=== PATIENT | male | born 1950 | race Caucasian/White ===

== ENCOUNTER 2019-08-11 06:58 | Observation (INO) | payer MEDICARE ==
[~2019-08-11] VITALS: Ht 167.6 cm; Wt 76.4 kg
[~2019-08-11 06:58] MED LIST: ACET500; ATOR10; DICL75ER PO; DICMIS75EC PO; EZET10-40 PO; GLUCOSAMIN-CHO1 EACH PO; INSULANPEN SC; LIRA0.6P; LISI20 PO; METF500 PO; METO10 PO; Multiple Vitam1 EAC1 PO; NAPR500; OMEP20ER; OMEP20ER PO; OXYACE5T PO; PIOG45 PO; Pravachol80 MG PO; TRAZ150T57 PO; TRAZ50; Vitamin B Comple1 EA PO; Vitamin C100 M1; ZESTORETIC 20-121 EA PO
[2019-08-11 10:37] LABS: Hematocrit 31.4 % (37.0-53.0); Hemoglobin 10.4 g/dL (13.5-17.5)
--- NOTE | 2019-08-11 10:45 | NUR ---
9226 Patient returned to recovery room. Pale skin noted. Dopamine infusing at 5 mcg/min from the clinical lab scientist. H&H drawn in the lab and results noted and reported to Dr. Hickman. Bilateral groin sites noted with dressing CDI and soft no hematoma. Call light in reach. to the bedside. Denies any pain at this time. Patient remains prone.
--- NOTE | 2019-08-11 10:52 | NUR ---
1052 Rhythm change noted. Drop to 30's, and then return rhythm was changed from pre procedure strip. MD at the bedside and ordered 12 lead EKG performed. Patient denies gagandeep pain, patient is sleepy from post sedation.
--- NOTE | 2019-08-11 10:58 | NUR ---
1058 Glucose checked at the bedside. 160 result.
--- NOTE | 2019-08-11 11:01 | NUR ---
1102 Stat labs drawn after EKG reviewed and compared to the prior EKG. Encouraging the patient to urinate.
--- NOTE | 2019-08-11 11:09 | NUR ---
1109 Lanier catheter placed. Aparna C/O nausea, Obtained order for Zofran and 4 mg IV Zofran given. Lab at the bedside for blood ordered.
[2019-08-11 12:22] LABS: Alanine Aminotransfer (ALT/SGP 20 U/L (12-78); Albumin, Blood 2.9 g/dL (3.4-5.0); Albumin/Globulin Ratio 1.4 (0.8-1.8); Alk Phos 41 U/L (50-136); Anion Gap 5 mmol/L (6-16); Aspartate Aminotrans (AST/SGOT 16 U/L (12-37); Bilirubin, Total 0.4 mg/dL (0.1-1.0); Blood Urea Nitrogen 20 mg/dL (8-24); Bun/Creatinine Ratio 20.8 (12.0-20.0); CO2, Blood 23 mmol/L (21-32); Calcium, Blood 7.5 mg/dL (8.5-10.1); Chloride, Blood 114 mmol/L (98-108); Creatinine, Blood 0.96 mg/dL (0.60-1.20); Globulin, Blood 2.1 g/dL (2.2-4.0); Glomerular Filtration Rate >60 (60-); Glucose, Blood 168 mg/dL (70-99); Potassium, Blood 4.4 mmol/L (3.5-5.5); Sodium, Blood 142 mmol/L (136-145)
--- NOTE | 2019-08-11 12:36 | NUR ---
PT TR BAND FULLY DEFLATED. NO BLEEDING OR HEMATOMA NOTED. VSS. NADN. PT DENIES PAIN OR NEEDS. CALL LIGHT WITHIN REACH. FAMILY AT BEDSIDE. CONTINUOUS MONITORING IN PLACE.
[2019-08-11] MEDS ORDERED: ATOR80 PO (13:45)
[2019-08-11] MEDS ORDERED: FARXIGA5 MG PO (13:46)
--- NOTE | 2019-08-11 14:03 | NUR ---
[address] and then admitted to the ICU overnight.
--- NOTE | 2019-08-11 14:04 | NUR ---
[address] Hickman about increase of abdomen pain from a 08/10 to 11/07. Ordered a CT of the abdomen. 1340 Dopamine off due to increased HR and started Levophed at 1 mcg/min and titrated for MAP of 60
--- NOTE | 2019-08-11 14:20 | NUR ---
PATIENT ARRIVED VIA STRETCHER FROM HEART CENTER AFTER REPORT WAS CALLED TO THIS RN BY BRITTANY RN, MOVED FROM STRETCHER TO ICU BED ROOM 4 VIA SLIDER, PATIERNT TOLERATED WELL, AFEBRILE, C/0 ABDOMINAL PAIN AND TENDERNESS 11/07, PATIENT WAS TAKEN TO CT SCAN PRIOR TO ARRIVING IN ICU FOR ABDOMINAL CT SCAN, PATIENT WAS PLACED ON ICU MONITOR AND ORIENTED TO ROOM AND NEW ENVIRONMENT, CALL LIGHT GIVEN AND EXPLAINED, PATIENT VERBALIZED UNDERSTANDING, PATIENT ON LEVOPHED DRIP AT 3 WHEN ARRIVING, BUMPED TO 8 WITHIN 5 MINUTES OF PATIENT'S ARRIVAL D/T LOW SBP'S AND MAP'S IN 80'S OVER 40'S AND MAP IN 50'S, HEART CENTER TEAM HAD NOT LEFT YET WHEN THIS RN WAS VOCERAD BY ANOTHER MEMBER OF THE HEART CENTER TEAM AND TOLD THAT THE PATIENT HAD TO RETURN TO THE DIRECTOR SMB SALES IMMEDIATELY PER RADIOLOGY AND DR. HARP, PATIENT WAS TAKEN TO HEART CENTER IN ICU BED WITH IVF'S AND DRIPS.
--- NOTE | 2019-08-11 14:48 | NUR ---
[address] scanner then ICU #4. Beforer completing handoff to the ICU staff we were notified from Dr. Hickman that we needed to bring the patient back to the yard labor supervisor. Levophed titrated for MAP 60. 8 mcg/min on arrival to the ICU. 1435 Patient returned to the Agronomy Supervisor. Patient had eaten appled and water about 2 hours ago. So plan to do without sedation.
[2019-08-11 15:04] LABS: Hematocrit 36.8 % (37.0-53.0)
--- NOTE | 2019-08-11 17:41 | NUR ---
SHIFT SUMMARY NOTE: PATIENT ARRIVED TO ROOM ICU 4 INITIALLY AT 1420 AND WAS PLACED ON MONITOR, WAS ON LEVOPHED AT 3-8 AT THAT TIME, PUNCTURE ACCESS SITES ON BOTH GROIN SITES, AFEBRILE, CONTINUED TO C/O ABDOMINAL PAIN AND TENDERNESS, TAKEN TO CT SCAN, SHOWED RETROPERITONEAL BLEED WITH 1200 ML BLED INTO TISSUES, PATIENT WAS IMMEDIATELY TAKEN BACK TO THE MULTIFOCAL BUTTON GENERATOR, WHERE DR. HARP PLACED A 6 FR SHEATH IN THE RIGHT GROIN, ATTACHED TO ART LINE, NO BLEEDING WAS DETECTED AT THAT TIME, PATIENT RETURNED TO ROOM ICU 4 FROM MULTIFOCAL BUTTON GENERATOR AT 1615, WAS PLACED ON MONITOR, BOTH GROIN SITES C/D/I, NO BLEEDING, NONTENDER ON PALPATION, NO HEMATOMA NOTED, ART LINE ON MONITOR WELL, PATIENT IS AWAKE, ALERT AND ORIENTED, LUNG SOUNDS DIMINISHED, NSR, HR 90'S, SBP'S IN 90'S TO LOW 100'S, CONTINUES ON LEVOPHED AT 1, ALSO HAS ORDERS TO TRANSFUSE 4 UNITS OF PRBC'S, FIRST UNIT WAS STARTED AT 1700 HOURS, PATIENT IS AFEBRILE, DENIES PAIN AT THIS TIME, C/O ACID REFLUX, WILL GIVE PRILOSEC SOON AVAILABLE, PATIENT IS TOLERATING BLOOD ADMINISTRATION WELL, VSS, SBP INCREASING, AND DAUGHTER AT BEDSIDE, PATIENT IS EATING DINNER WITH GOOD APPETITE IN SLIGHTLY REVERSED [place], WAS INSTRUCTED TO KEEP RLE STRAIGHT AND IS COOPERATIVE, LONG CATHETER IN PLACE, DRAINING GOOD AMOUNT OF CLEAR YELLOW URINE, FOR DETAILS SEE ADMISSION ASSESSMENT DOCUMENTATION AND NURSES NOTES, CALL LIGHT IN REACH, WILL CONTINUE TO MONITOR, AND GIVE REPORT TO ONCOMING SONAR TECHNICIAN.
[2019-08-11 18:26] LABS: Calcium, Blood 8.2 mg/dL (8.5-10.1); Phosphorus, Blood 4.9 mg/dL (2.5-4.9)
[2019-08-11 23:38] LABS: Hematocrit 34.3 % (37.0-53.0); Hemoglobin 11.4 g/dL (13.5-17.5)
[2019-08-12 04:30] LABS: Hematocrit 36.4 % (37.0-53.0); Hemoglobin 12.5 g/dL (13.5-17.5)
--- NOTE | 2019-08-12 05:41 | NUR ---
SHIFT SUMMARY PATIENT SLEPT WELL THROUGH NIGHT. GAVE X3 UNITS OF PRBCs, A.M. HEMOGLOBIN = 12.4. LEVOPHED WAS SHUT OFF ~ MIDNIGHT. GAVE X1 TYLENOL FOR ABDOMEN PAIN. NO S/S OF BLEEDING. BP MAINTAINED 110S OVER 50S MMHG ALMOST ALL NIGHT, MAP STAYED 65-70 MMHG. ART LINE WAS SLIGHTLY POSITIONAL AROUND 01:00, PLACED TAPE TRACTION DISTAL OF INSERTION SITE, HAS WORKED JUST FINE SINCE. ASSESSMENT IS CHARTED. VSS. WILL CONTINUE TO MONITOR.
--- NOTE | 2019-08-12 08:14 | NUR ---
CARE ASSUMED ASSESSMENT COMPLETED. PT LYING FLAT PER ART LINE PROTOCOL, VSS, PT REPORTS MID LOWER ABD PAIN AND BACK DISCOMFORT 4/10, DENIES NAUSEA. ART LINE TO RIGHT GROIN AND CL TO RIGHT IJ WNL, DRESSINGS CDI, NO HEMATOMA/ACTIVE BLEEDING NOTED AT EITHER SITE. LEFT GROIN ACCESS SITE WNL, BANDAID CDI, PPP, CMS WNL. NO BRUISING NOTED TO RIGHT ABD OR FLANK, NO ABD DISTENTION NOTED, WILL CONTINUE TO MONITOR. PT ALERT AND ORIENTED, APPROPRIATE AND COOPERATIVE. REVERSE [place] POSITION SO PT CAN EAT BREAKFAST, AT BEDSIDE TO ASSIST. ART LINE ZEROED AT THIS TIME.
--- NOTE | 2019-08-12 10:09 | NUR ---
UPDATE PT UP TO BR FOR LARGE BM, GAIT VERY WEAK, SHAKY, UNSTEADY, MAX ASSIST REQUIRED. PT THEN BACK TO CHAIR, FINISHED BREAKFAST, VSS. ASSISTED TO SHOWER VIA SHOWER CHAIR, TOLERATED WELL. PT ALERT, ORIENTED TO SELF AND SITUATION, COOPERATIVE WITH CARE. PRECEDEX REMAINS OFF. BP IMPROVED AFTER BOLUS.
--- NOTE | 2019-08-12 10:13 | NUR ---
UPDATE PT ATE BREAKFAST WITHOUT DIFFICULTY, TOLERATED WELL. REPOSITIONED IN BED, BILAT GROIN SITES REMAIN WNL. PT REQUESTING TYLENOL FOR PAIN, WILL MEDICATE PER ORDERS. VS REMAIN STABLE, ART BP 120'S/60'S. ABD REMAINS UNCHANGED, NO BRUSING NOTED TO ABD OR FLANK.
--- NOTE | 2019-08-12 12:15 | NUR ---
UPDATE DR. HARP IN TO SEE PATIENT, UPDATED ON DC PLAN. MERCEDES BLUNT'D AT THIS TIME, PT IN REVERSE [place] FOR LUNCH, DENIES NEEDS. REPORTS PAIN RELIEF AFTER TYLENOL. VSS.
--- NOTE | 2019-08-12 14:00 | NUR ---
UPDATE R IJ CL AND R FEM ART SHEATH DC'D PER PROTOCOLS, HEMOSTASIS ACHIEVED AFTER HOLDING MANUAL PRESSURE. DRESSINGS APPLIED, PT TOLERATED WELL, REMAINS LYING FLAT AT THIS TIME. PT AWARE OF PRECAUTIONS OF ARTERIAL SHEATH REMOVAL, IS AGREEABLE, CURRENTLY RESTING IN BED, HR 80'S, BP 112/53, R IJ SITE AND R FEM ART SHEATH SITE WNL, WILL MONITOR CLOSELY FOR CHANGES.
--- NOTE | 2019-08-12 16:34 | NUR ---
DISCHARGE PT LAID FLAT FOR 1 HOUR AFTER RIGHT GROIN ARTERIAL SHEATH REMOVAL, SITE WNL. PT THEN SAT UP FOR 1 HOUR WITH NO CHANGE TO SITE. VSS, PT VOIDING WITHOUT DIFFICULTY, ASSISTED UP AND OOB, AMBULATED IN ROOM WITH WALKER, GAIT STEADY, VS REMAINED STABLE. PT SAT IN CHAIR AFTER AMBULATION, GROIN SITES WNL, ASSESSED BY SECOND NURSE TO CONFIRM. RIGHT AND LEFT GROIN SITES SOFT, RIGHT TENDER TO PALPATION, NO HEMATOMA NOTED. CMS WNL TO LE'S, PPP. IV DC'D WITH TIP INTACT, PRESSURE DRESSING APPLIED. PT GIVEN DC AND MEDICATION INSTRUCTIONS, RETROPERITONEAL BLEED SYMPTOMS STRESSED TO PATIENT, IMPORTANCE OF IMMEDIATE EVALUATION IN ER REITERATED IF PT BECAME SYMPTOMATIC OF RETROPERI REBLEED OR GROIN SITE BLEED, PT AND VERBALIZE UNDERSTANDING AND CAN LIST SYMPTOMS. PT ASSISTED TO DRESS, DC TO HOME AT THIS TIME WITH , ASSISTED TO CAR VIA WC BY STAFF. GAIT STEADY UPON DISCHARGE.
== END 2019-08-12 16:45 | disposition home or self-care (01) ==
LOC: MHTC 06:58 → ICUE 14:11 → MHTC 16:19 → ICUE 08-12 16:45
PROVIDERS: ADMIT Radiology Diagnostic Radiology
DX: I97.638 Postprocedural hematoma of a circulatory system organ or structure following other circulatory system procedure (principal); E11.51 Type 2 diabetes mellitus with diabetic peripheral angiopathy without gangrene; I10 Essential (primary) hypertension; E78.5 Hyperlipidemia, unspecified; K21.9 Gastro-esophageal reflux disease without esophagitis; Z88.0 Allergy status to penicillin; Z88.8 Allergy status to other drugs, medicaments and biological substances; Z79.4 Long term (current) use of insulin; Z79.899 Other long term (current) drug therapy; Z88.6 Allergy status to analgesic agent
CPT/HCPCS: 36200; 36245; 36430; 36556; 37220; 37221; 37252; 74176; 75625; 75716; 76937; 80053; 82310; 82947; 84100; 84484; 85014; 85018; 86850; 86900; 86901; 86923; 93005; 93010; 99152; 99153; A9270; A9270-GY; C1725; C1751; C1753; C1760; C1769; C1876; C1887; C1894; G0378; J1265; J1644; J2250; J2405; J3010; J7030; J7040; P9016; Q9967

== ENCOUNTER 2019-09-03 06:46 | Day surgery (SDC) | payer MEDICARE ==
[~2019-09-03] VITALS: Ht 167.6 cm; Wt 73.0 kg
[~2019-09-03 06:46] MED LIST changes: +ATOR80 PO; +FARXIGA5 MG PO
--- NOTE | 2019-09-03 14:19 | NUR ---
TR BAND FULLY DEFLATED, REMAINS ON WITH ARM BOARD, SITE SOFT NON TENDER WITH NO ACTIVE BLEEDING, OOZING, OR PAIN NOTED. LEFT GROIN SITE ALSO REMAINS STABLE. SOFT NON TENDER, ASHLIE PAD IN PLACE OVER INCISION SITE, TRANSPARENT DRESSING INTACT. PT HOB RAISED 45 DEGREES, NO NEEDS AT THIS TIME. PRESENT AT BEDSIDE, REVIEWING DISCHARGE INSTRUCTIONS. VSS. CALL LIGHT IN REACH.
--- NOTE | 2019-09-03 15:27 | NUR ---
PT OUT OF BED, AMBULATES TO RESTROOM WITH STEADY GAIT. UNMEASURED VOID. PT GETTING DRESSED WITH ASSISTANCE FROM . LEFT GROIN SITE STABLE. TR BAND REMOVED FROM LEFT WRIST, RED CLOTH DOT DRESSING APPLIED. ARM BOARD ON FOR SUPPORT. WILL CONTINUE TO MONITOR.
--- NOTE | 2019-09-03 15:59 | NUR ---
PT AND HIS VERBALIZE UNDERSTANDING OF DISCHARGE INSTRUCTIONS. PAPERWORK PROVIDED. BOTH ARTERIAL SITES APPEAR TO BE WNL. SOFT NON TENDER WITH NO ACTIVE BLEEDING, OOZING, OR PAIN NOTED. IV REMOVED FROM RFA WITH CATH INTACT, PRESSURE DRESSING APPLIED. PT PLANS TO DRIVE THEM HOME. TAKEN TO PRIVATE VEHICLE VIA W/C. NADN AT TIME OF DISPO. PERSONAL BELONGINGS SENT WITH PATIENT.
== END 2019-09-03 15:35 | disposition home or self-care (01) ==
LOC: MHTC 06:46
DX: I70.212 Atherosclerosis of native arteries of extremities with intermittent claudication, left leg (principal); E11.51 Type 2 diabetes mellitus with diabetic peripheral angiopathy without gangrene; E78.5 Hyperlipidemia, unspecified; I10 Essential (primary) hypertension; Z87.891 Personal history of nicotine dependence; Z88.6 Allergy status to analgesic agent; Z88.8 Allergy status to other drugs, medicaments and biological substances; Z79.899 Other long term (current) drug therapy; Z79.4 Long term (current) use of insulin
CPT/HCPCS: 36245; 37221; 37223; 75710; 75716; 76937; 85347; 99152; 99153; C1725; C1757; C1760; C1769; C1874; C1876; C1887; C1894; J1644; J2250; J3010; J7030; J7040; Q9967

== ENCOUNTER 2021-10-04 05:22 | Day surgery (SDC) | payer MEDICARE ==
[~2021-10-04] VITALS: Ht 170.2 cm; Wt 78.6 kg
[2021-10-04] MEDS ORDERED: Lisinopril2.5 MG (09:48)
[2021-10-04] MEDS ORDERED: TOUJEO MAX300 UNIT/2 (09:49)
== END 2021-10-04 11:58 | disposition home or self-care (01) ==
LOC: ORSCSDS 05:22
PROVIDERS: Internal Medicine Gastroenterology
PROC: 0DBL8ZX Excision of Transverse Colon, Via Natural or Artificial Opening Endoscopic, Diagnostic (ICD-10-PCS; principal; 2021-10-04 10:30)
PROC: 0DBE8ZX Excision of Large Intestine, Via Natural or Artificial Opening Endoscopic, Diagnostic (ICD-10-PCS; principal; 2021-10-04 10:30)
DX: R19.4 Change in bowel habit (principal); D12.3 Benign neoplasm of transverse colon; K57.30 Diverticulosis of large intestine without perforation or abscess without bleeding; K62.7 Radiation proctitis; E11.9 Type 2 diabetes mellitus without complications; Z87.891 Personal history of nicotine dependence; Z85.46 Personal history of malignant neoplasm of prostate; Z79.4 Long term (current) use of insulin; Z79.899 Other long term (current) drug therapy
CPT/HCPCS: 82947; 88305; J2704; J7120

== ENCOUNTER → 2022-08-22 | Outpatient (CLI) | payer MEDICARE ==
[~2022-08-22] MED LIST changes: +HUMALOG100 UNIT/1 SC; +Lisinopril2.5 MG PO; +ORGOVYX120 MG PO; +TOUJEO MAX300 UNIT/2 SC
[2022-08-22 19:09] LABS: BASOPHILS ABSOLUTE AUTO 0.02 K/mm3 (0.00-0.23); BASOPHILS PERCENT AUTO 1 % (0-2); EOSINOPHILS ABSOLUTE AUTO 0.02 K/mm3 (0.00-0.68); EOSINOPHILS PERCENT AUTO 1 % (0-6); Hematocrit 34.3 % (37.0-53.0); Hemoglobin 11.9 g/dL (13.5-17.5); IMMATURE GRAN ABSOLUTE AUTO 0.02 K/mm3 (0.00-0.10); IMMATURE GRAN PERCENT AUTO 1 % (0-1); LYMPHOCYTES ABSOLUTE AUTO 0.49 K/mm3 (0.84-5.20); LYMPHOCYTES PERCENT AUTO 11 % (21-46); MONOCYTES ABSOLUTE AUTO 0.38 K/mm3 (0.16-1.47); MONOCYTES PERCENT AUTO 9 % (4-13); Mean Corpuscular HGB 31.1 pg (26.0-34.0); Mean Corpuscular HGB Conc 34.7 g/dL (31.5-36.5); Mean Corpuscular Volume 90 fL (80-100); Mean Platelet Volume 9.1 fL (9.1-12.4); NEUTROPHILS ABSOLUTE AUTO 3.41 K/mm3 (1.96-9.15); NEUTROPHILS PERCENT AUTO 78 % (41-73); Platelet Count 138 K/mm3 (150-400); RDW Coefficient Variation 12.9 % (11.7-14.2); RDW Standard Deviation 42.4 fL (35.1-46.3); Red Blood Cell Count 3.83 M/mm3 (4.30-5.90); White Blood Cell Count 4.34 K/mm3 (4.00-11.30)
[2022-08-22 19:13] LABS: Calcium, Blood 8.6 mg/dL (8.5-10.1); Creatinine, Blood 1.37 mg/dL (0.60-1.20); Potassium, Blood 3.6 mmol/L (3.5-5.5)
== END | disposition home or self-care (01) ==
LOC: LAB SHORT 19:04
PROVIDERS: Physician Assistant Surgical
DX: R53.83 Other fatigue (principal)
CPT/HCPCS: 80048; 85025

== ENCOUNTER 2022-08-24 07:53 | Inpatient (IN) | payer MEDICARE ==
[~2022-08-24] VITALS: Ht 170.2 cm; Wt 81.7 kg
[~2022-08-24 07:53] MED LIST changes: -HUMALOG100 UNIT/1 SC; -ORGOVYX120 MG PO
[2022-08-24 08:25] LABS: Calcium, Ionized (POC) 1.06 mmol/L (1.10-1.46); Chloride (POC) 104 mmol/L (98-108); Creatinine (POC) 1.3 mg/dL (0.8-1.3); Glucose (ISTAT POC) 170 mg/dL (70-99); Hemoglobin (POC) 12.2 g/dL (13.5-17.5); Potassium (POC) 3.6 mmol/L (3.5-5.5); Sodium (POC) 138 mmol/L (135-148); Total CO2 (POC) 24 mmol/L (21-32)
[2022-08-24 09:40] LABS: BASOPHILS ABSOLUTE AUTO 0.01 K/mm3 (0.00-0.23); BASOPHILS PERCENT AUTO 0 % (0-2); EOSINOPHILS PERCENT AUTO 0 % (0-6); Hematocrit 35.8 % (37.0-53.0); IMMATURE GRAN ABSOLUTE AUTO 0.03 K/mm3 (0.00-0.10); IMMATURE GRAN PERCENT AUTO 0 % (0-1); LYMPHOCYTES ABSOLUTE AUTO 0.61 K/mm3 (0.84-5.20); LYMPHOCYTES PERCENT AUTO 7 % (21-46); MONOCYTES ABSOLUTE AUTO 0.55 K/mm3 (0.16-1.47); MONOCYTES PERCENT AUTO 6 % (4-13); Mean Corpuscular HGB 30.1 pg (26.0-34.0); Mean Corpuscular HGB Conc 33.5 g/dL (31.5-36.5); Mean Corpuscular Volume 90 fL (80-100); Mean Platelet Volume 9.6 fL (9.1-12.4); NEUTROPHILS ABSOLUTE AUTO 7.82 K/mm3 (1.96-9.15); NEUTROPHILS PERCENT AUTO 87 % (41-73); Platelet Count 124 K/mm3 (150-400); RDW Coefficient Variation 12.8 % (11.7-14.2); RDW Standard Deviation 42.1 fL (35.1-46.3); Red Blood Cell Count 3.99 M/mm3 (4.30-5.90); White Blood Cell Count 9.02 K/mm3 (4.00-11.30)
[2022-08-24] MEDS ORDERED: ORGOVYX120 MG PO (09:45)
[2022-08-24] MEDS ORDERED: HUMALOG100 UNIT/1 SC (09:45)
[2022-08-24 10:15] LABS: Albumin/Globulin Ratio 0.9 (0.8-1.8); Bilirubin, Total 0.4 mg/dL (0.1-1.0); Bun/Creatinine Ratio 20.7 (12.0-20.0); Calcium, Blood 8.3 mg/dL (8.5-10.1); Creatinine, Blood 1.11 mg/dL (0.60-1.20); Globulin, Blood 3.2 g/dL (2.2-4.0); Potassium, Blood 3.8 mmol/L (3.5-5.5); Total Protein, Blood 6.2 g/dL (6.4-8.2)
--- NOTE | 2022-08-24 19:13 | NUR ---
Received report from ongoing nurse. Pt resting comfortably in bed. will continue to monitor.
[2022-08-25 05:06] LABS: BASOPHILS ABSOLUTE AUTO 0.02 K/mm3 (0.00-0.23); BASOPHILS PERCENT AUTO 0 % (0-2); EOSINOPHILS PERCENT AUTO 0 % (0-6); Hematocrit 37.1 % (37.0-53.0); Hemoglobin 12.3 g/dL (13.5-17.5); IMMATURE GRAN ABSOLUTE AUTO 0.06 K/mm3 (0.00-0.10); IMMATURE GRAN PERCENT AUTO 1 % (0-1); LYMPHOCYTES ABSOLUTE AUTO 0.96 K/mm3 (0.84-5.20); LYMPHOCYTES PERCENT AUTO 9 % (21-46); MONOCYTES ABSOLUTE AUTO 0.53 K/mm3 (0.16-1.47); MONOCYTES PERCENT AUTO 5 % (4-13); Mean Corpuscular HGB 29.7 pg (26.0-34.0); Mean Corpuscular HGB Conc 33.2 g/dL (31.5-36.5); Mean Corpuscular Volume 90 fL (80-100); Mean Platelet Volume 9.5 fL (9.1-12.4); NEUTROPHILS ABSOLUTE AUTO 8.94 K/mm3 (1.96-9.15); NEUTROPHILS PERCENT AUTO 85 % (41-73); Platelet Count 127 K/mm3 (150-400); RDW Coefficient Variation 13.1 % (11.7-14.2); RDW Standard Deviation 43.1 fL (35.1-46.3); Red Blood Cell Count 4.14 M/mm3 (4.30-5.90); White Blood Cell Count 10.51 K/mm3 (4.00-11.30)
[2022-08-25 05:47] LABS: Albumin, Blood 2.9 g/dL (3.4-5.0); Anion Gap 5 mmol/L (6-16); Blood Urea Nitrogen 22 mg/dL (8-24); CO2, Blood 25 mmol/L (21-32); Calcium, Blood 8.5 mg/dL (8.5-10.1); Chloride, Blood 109 mmol/L (98-108); Creatinine, Blood 1.16 mg/dL (0.60-1.20); Glomerular Filtration Rate 66 (60-); Glucose, Blood 145 mg/dL (70-99); Magnesium, Blood 1.8 mg/dL (1.6-2.4); Phosphorus, Blood 2.6 mg/dL (2.5-4.9); Potassium, Blood 3.9 mmol/L (3.5-5.5); Sodium, Blood 139 mmol/L (136-145)
--- NOTE | 2022-08-25 06:16 | NUR ---
Shift Summary Pt Covid +, enhanced isolation, at the bedside t/o the night. Pt very weak, able to stand at bedside to void into urinal but unable to pivot to BSC. Pt on 2L O2 NC with cont. pulse ox monitor. SPO2 90-99%. Pt febrile, high temp of 103. Temp managed well with Tylenol. NS running at 100 ml/hr. Q6 blood sugars. Pt AOx3, some difficulty remembering details. Pleasant and cooperative with care.
--- NOTE | 2022-08-25 19:13 | NUR ---
SHIFT SUMMARY: PT A&O X3-4. PT HAS BEEN PLEASANT AND COOPERATIVE WITH CARE. /FAMILY HAS BEEN AT BEDSIDE DURING SHIFT. PT HAD FEVER ON EVENING SHIFT AND WAS GIVEN TYLENOL. PT HAS BEEN AFEBRILE SINCE. PT WORKED WITH PHYSICAL THERAPY TODAY AND WAS CLEARED TO SIT ON SIDE OF BED FOR MEALS IF FAMILY OR HOME TEACHING GRADES 9 THRU 12 TEACHER IS AROUND. PT STILL EXTREMELY WEAK IN BLE. PT CONCERNED ABOUT INSULIN BEING EVER 6 HOURS STATING HE GETS INSULIN BEFORE MEALS AT HOME. WILL DISCUSS WITH DOCTOR TOMORROW. PT >92% ON 2L. NS RUNNING AT 100/HR. CALL LIGHT IN REACH. WILL CONTINUE TO MONITOR.
[2022-08-26 05:31] LABS: BASOPHILS ABSOLUTE AUTO 0.03 K/mm3 (0.00-0.23); BASOPHILS PERCENT AUTO 0 % (0-2); EOSINOPHILS ABSOLUTE AUTO 0.08 K/mm3 (0.00-0.68); EOSINOPHILS PERCENT AUTO 1 % (0-6); Hematocrit 32.1 % (37.0-53.0); Hemoglobin 10.7 g/dL (13.5-17.5); IMMATURE GRAN ABSOLUTE AUTO 0.02 K/mm3 (0.00-0.10); IMMATURE GRAN PERCENT AUTO 0 % (0-1); LYMPHOCYTES PERCENT AUTO 12 % (21-46); MONOCYTES ABSOLUTE AUTO 0.33 K/mm3 (0.16-1.47); MONOCYTES PERCENT AUTO 4 % (4-13); Mean Corpuscular HGB 29.9 pg (26.0-34.0); Mean Corpuscular HGB Conc 33.3 g/dL (31.5-36.5); Mean Corpuscular Volume 90 fL (80-100); Mean Platelet Volume 9.9 fL (9.1-12.4); NEUTROPHILS ABSOLUTE AUTO 6.37 K/mm3 (1.96-9.15); NEUTROPHILS PERCENT AUTO 82 % (41-73); Platelet Count 117 K/mm3 (150-400); RDW Coefficient Variation 13.1 % (11.7-14.2); RDW Standard Deviation 43.3 fL (35.1-46.3); Red Blood Cell Count 3.58 M/mm3 (4.30-5.90); White Blood Cell Count 7.73 K/mm3 (4.00-11.30)
[2022-08-26 05:41] LABS: Albumin, Blood 2.4 g/dL (3.4-5.0); Anion Gap 4 mmol/L (6-16); Blood Urea Nitrogen 17 mg/dL (8-24); Bun/Creatinine Ratio 18.8 (12.0-20.0); CO2, Blood 24 mmol/L (21-32); Calcium, Blood 8.2 mg/dL (8.5-10.1); Chloride, Blood 113 mmol/L (98-108); Creatinine, Blood 0.91 mg/dL (0.60-1.20); Glomerular Filtration Rate 88 (60-); Glucose, Blood 110 mg/dL (70-99); Phosphorus, Blood 2.4 mg/dL (2.5-4.9); Potassium, Blood 3.6 mmol/L (3.5-5.5); Sodium, Blood 141 mmol/L (136-145)
--- NOTE | 2022-08-26 18:00 | NUR ---
SHIFT SUMMARY: PT A&O X4. NO ACUTE CHANGES WITH PT THIS SHIFT. PT WORKED WITH PHYSICAL THERAPY WHO STATED HE IS TO BE A ONE PERSON WITH FWW FOR TRANSFERS. PT ABLE TO TRANSFER TO BEDSIDE COMMODE. BLOOD SUGARS CHANGED TO AC/HS. FLUIDS D/C. PT TITRATED DOWN TO 1L 02. TOLERATING WELL AND SATING >95%. IV IN LFA WENT BAD AND WILL ATTEMPT TO PLACE NEW ONE FOR 1800 ABX. PLAN FOR PT TO GO TO SNF AFTER D/C. FAMILY AT BEDSIDE. CALL LIGHT IN REACH. BED IN LOWEST POSITION. WILL CONTINUE TO MONITOR.
[2022-08-27 05:41] LABS: BASOPHILS ABSOLUTE AUTO 0.02 K/mm3 (0.00-0.23); BASOPHILS PERCENT AUTO 0 % (0-2); EOSINOPHILS ABSOLUTE AUTO 0.06 K/mm3 (0.00-0.68); EOSINOPHILS PERCENT AUTO 1 % (0-6); Hematocrit 32.9 % (37.0-53.0); Hemoglobin 11.1 g/dL (13.5-17.5); IMMATURE GRAN ABSOLUTE AUTO 0.02 K/mm3 (0.00-0.10); IMMATURE GRAN PERCENT AUTO 0 % (0-1); LYMPHOCYTES PERCENT AUTO 12 % (21-46); MONOCYTES ABSOLUTE AUTO 0.35 K/mm3 (0.16-1.47); MONOCYTES PERCENT AUTO 5 % (4-13); Mean Corpuscular HGB 29.7 pg (26.0-34.0); Mean Corpuscular HGB Conc 33.7 g/dL (31.5-36.5); Mean Corpuscular Volume 88 fL (80-100); NEUTROPHILS ABSOLUTE AUTO 5.33 K/mm3 (1.96-9.15); NEUTROPHILS PERCENT AUTO 81 % (41-73); Platelet Count 127 K/mm3 (150-400); RDW Coefficient Variation 12.9 % (11.7-14.2); RDW Standard Deviation 41.1 fL (35.1-46.3); Red Blood Cell Count 3.74 M/mm3 (4.30-5.90); White Blood Cell Count 6.58 K/mm3 (4.00-11.30)
--- NOTE | 2022-08-27 05:46 | NUR ---
Summary: No acute events overnight. Weaned Patient O2 down to 0.5L via nasal cannula. Patient ambulated up to bedside commode with gait belt FWW and assistance for a bowel movement. VSS. Call light in reach.
[2022-08-27 06:19] LABS: Albumin, Blood 2.5 g/dL (3.4-5.0); Anion Gap 6 mmol/L (6-16); Blood Urea Nitrogen 14 mg/dL (8-24); Bun/Creatinine Ratio 16.9 (12.0-20.0); CO2, Blood 26 mmol/L (21-32); Calcium, Blood 8.9 mg/dL (8.5-10.1); Chloride, Blood 108 mmol/L (98-108); Creatinine, Blood 0.83 mg/dL (0.60-1.20); Glomerular Filtration Rate 92 (60-); Glucose, Blood 63 mg/dL (70-99); Magnesium, Blood 1.7 mg/dL (1.6-2.4); Phosphorus, Blood 3.3 mg/dL (2.5-4.9); Potassium, Blood 3.6 mmol/L (3.5-5.5); Sodium, Blood 140 mmol/L (136-145)
--- NOTE | 2022-08-27 17:42 | NUR ---
SHIFT SUMMARY NO ACUTE CHANGES DURING SHIFT. PT ALERT AND ORIENTED, CALLS APPROPRIATELY. FAMILY AT BEDSIDE. PT ON RA MAJORITY OF DAY, SPO2 REMAINS > 92%. PT X 1 ASSIST WITH FWW AND BELT. PT UP TO CHAIR FOR MEALS. PT/OT WORKING WITH PT. PENDING SNF PLACEMENT. WILL CONTINUE TO MONITOR. CALL LIGHT WITHIN REACH.
[2022-08-28 05:00] LABS: BASOPHILS ABSOLUTE AUTO 0.01 K/mm3 (0.00-0.23); BASOPHILS PERCENT AUTO 0 % (0-2); EOSINOPHILS ABSOLUTE AUTO 0.06 K/mm3 (0.00-0.68); EOSINOPHILS PERCENT AUTO 2 % (0-6); Hematocrit 32.1 % (37.0-53.0); Hemoglobin 10.9 g/dL (13.5-17.5); IMMATURE GRAN ABSOLUTE AUTO 0.01 K/mm3 (0.00-0.10); IMMATURE GRAN PERCENT AUTO 0 % (0-1); LYMPHOCYTES ABSOLUTE AUTO 0.43 K/mm3 (0.84-5.20); LYMPHOCYTES PERCENT AUTO 13 % (21-46); MONOCYTES PERCENT AUTO 9 % (4-13); Mean Corpuscular HGB 29.5 pg (26.0-34.0); Mean Corpuscular Volume 87 fL (80-100); Mean Platelet Volume 10.2 fL (9.1-12.4); NEUTROPHILS ABSOLUTE AUTO 2.49 K/mm3 (1.96-9.15); NEUTROPHILS PERCENT AUTO 76 % (41-73); Platelet Count 153 K/mm3 (150-400); RDW Coefficient Variation 12.6 % (11.7-14.2); RDW Standard Deviation 40.1 fL (35.1-46.3); Red Blood Cell Count 3.69 M/mm3 (4.30-5.90)
--- NOTE | 2022-08-28 05:32 | NUR ---
Summary: Patient on RA when awake but was desating down to 84% while sleeping. Placed patient on 1.5L O2 to keep levels above 92%. Patient O2 is atable on RA when he was sitting up and alert. Patient ambulated up to bedside commode with gait belt FWW and assistance for a bowel movement. VSS. Call light in reach.
[2022-08-28 07:06] LABS: Albumin, Blood 2.5 g/dL (3.4-5.0); Albumin/Globulin Ratio 0.7 (0.8-1.8); Bilirubin, Total 0.6 mg/dL (0.1-1.0); Bun/Creatinine Ratio 17.2 (12.0-20.0); Calcium, Blood 8.9 mg/dL (8.5-10.1); Creatinine, Blood 0.76 mg/dL (0.60-1.20); Globulin, Blood 3.6 g/dL (2.2-4.0); Potassium, Blood 3.7 mmol/L (3.5-5.5); Total Protein, Blood 6.1 g/dL (6.4-8.2)
--- NOTE | 2022-08-28 17:49 | NUR ---
SHIFT SUMMARY NO ACUTE CHANGES DURING SHIFT. PT ALERT AND ORIENTED, CALLS APPROPRIATELY. PT BACK ON 1.5L NC. PT DESATS WHILE SLEEPING. PT UP OOB TO CHAIR DURING MEALS, X 1 ASSIST WITH FWW. PT PENDING PLACEMENT VS HOME HEALTH. CONTINUE IV ABX. NO C/O PAIN. WILL CONTINUE TO MONITOR. CALL LIGHT WITHIN REACH.
--- NOTE | 2022-08-29 05:34 | NUR ---
SHIFT SUMMARY PT A&OX 4 WITH CONFUSION AT TIMES, JOSE AT BEDSIDE AND ASSISTING WITH PT'S NEEDS, PT ON FRUIT RECEIVER- PT O2 INCREASED FROM 1.5L TO 3L D/T SATS NOT WNL- PT USES CALL LIGHT APPROPRIATE, PT SELF TURNS, ROUNDING PER PROTOCOL, BED LOW POSITION
[2022-08-29 06:40] LABS: BASOPHILS ABSOLUTE AUTO 0.02 K/mm3 (0.00-0.23); BASOPHILS PERCENT AUTO 1 % (0-2); EOSINOPHILS ABSOLUTE AUTO 0.12 K/mm3 (0.00-0.68); EOSINOPHILS PERCENT AUTO 3 % (0-6); Hematocrit 33.6 % (37.0-53.0); Hemoglobin 11.6 g/dL (13.5-17.5); Mean Corpuscular HGB 30.2 pg (26.0-34.0); Mean Corpuscular HGB Conc 34.5 g/dL (31.5-36.5); Mean Corpuscular Volume 88 fL (80-100); Mean Platelet Volume 9.6 fL (9.1-12.4); Platelet Count 187 K/mm3 (150-400); RDW Coefficient Variation 12.7 % (11.7-14.2); RDW Standard Deviation 40.3 fL (35.1-46.3); Red Blood Cell Count 3.84 M/mm3 (4.30-5.90); White Blood Cell Count 3.99 K/mm3 (4.00-11.30)
[2022-08-29 06:59] LABS: Calcium, Blood 8.9 mg/dL (8.5-10.1); Creatinine, Blood 0.83 mg/dL (0.60-1.20); Potassium, Blood 3.8 mmol/L (3.5-5.5)
[2022-08-29 07:02] LABS: IMMATURE GRAN ABSOLUTE AUTO 0.03 K/mm3 (0.00-0.10); IMMATURE GRAN PERCENT AUTO 1 % (0-1); LYMPHOCYTES ABSOLUTE AUTO 0.88 K/mm3 (0.84-5.20); LYMPHOCYTES PERCENT AUTO 22 % (21-46); MONOCYTES ABSOLUTE AUTO 0.37 K/mm3 (0.16-1.47); MONOCYTES PERCENT AUTO 9 % (4-13); NEUTROPHILS ABSOLUTE AUTO 2.57 K/mm3 (1.96-9.15); NEUTROPHILS PERCENT AUTO 64 % (41-73)
[2022-08-29] MEDS ORDERED: Acetaminophen325 M1 PO (14:07)
[2022-08-29] MEDS ORDERED: AMOCLA875 PO (14:07)
--- NOTE | 2022-08-29 17:11 | NUR ---
DISCHARGE SUMMARY: PATIENT DENIED PAIN OR DISCOMFORT THROUGHOUT THE SHIFT. PATIENT DENIED SHORTNESS OF BREATH. NO SHORTNESS OF BREATH NOTED AT REST OR WITH ACTIVITY. NO COUGH NOTED. SPO2 REMAINED ABOVE 90% WITH ACTIVITY AND AT REST. HOME O2 EVALUATION REVEALED THAT THE PATIENT DOES NOT REQUIRE O2 AT HOME. ENCOURAGED FAMILY TO FOLLOW UP WITH SLEEP STUDY. PATIENT AND REPORT THAT THEY ARE READY TO GO HOME. PATIENT'S TAKES NOTES AND IS RECEPTIVE TO EDUCATION AND SUGGESTIONS. PATIENT READY FOR DISCHARGE PER ORDERS. DISCHARGE RX FAXED TO PREFERRED PHARMACY. DISCHARGE INSTRUCTIONS AND EDUCATION PROVIDED TO THE PATIENT AND SPOUSE. ALL QUESTIONS AND CONCERNS ADDRESSED AT THIS TIME. PATIENT DISCHARGED IN WHEELCHAIR WITH APPRAISER TIMBER AND SPOUSE. PATIENT STABLE AT TIME OF DISCHARGE.
== END 2022-08-29 15:52 | disposition home health service (06) | DRG 177 ==
LOC: ER 07:53 → MEDS 11:21
PROVIDERS: Internal Medicine; Physician Assistant; ADMIT Family Medicine
PROC: 3E0DX3Z Introduction of Anti-inflammatory into Mouth and Pharynx, External Approach (ICD-10-PCS; principal; 2022-08-29)
DX: U07.1 COVID-19 (principal); J69.0 Pneumonitis due to inhalation of food and vomit; J96.01 Acute respiratory failure with hypoxia; G31.9 Degenerative disease of nervous system, unspecified; I12.9 Hypertensive chronic kidney disease with stage 1 through stage 4 chronic kidney disease, or unspecified chronic kidney disease; N18.30 Chronic kidney disease, stage 3 unspecified; E11.22 Type 2 diabetes mellitus with diabetic chronic kidney disease; K21.9 Gastro-esophageal reflux disease without esophagitis; R47.81 Slurred speech; Z88.8 Allergy status to other drugs, medicaments and biological substances; Z79.899 Other long term (current) drug therapy; Z85.46 Personal history of malignant neoplasm of prostate; Z79.4 Long term (current) use of insulin; Z79.02 Long term (current) use of antithrombotics/antiplatelets; Z79.811 Long term (current) use of aromatase inhibitors; Z98.890 Other specified postprocedural states; Z90.49 Acquired absence of other specified parts of digestive tract; Z87.891 Personal history of nicotine dependence
CPT/HCPCS: 36415; 80047; 80048; 80053; 80069; 82947; 83735; 84145; 85014; 85025; 92526; 92610; 94761; 94762; 96361; 96374; 96375; 97110; 97110-CQ; 97116; 97116-CQ; 97162; 97166; 97530; 99285-25; A9270; J0456; J0696; J1650; J1815; J1885; J7030; J7050

== ENCOUNTER 2024-04-23 22:46 | Emergency (ER) | payer MEDICARE ==
[~2024-04-23] VITALS: Ht 170.2 cm; Wt 81.7 kg
[~2024-04-23 22:46] MED LIST changes: +AMOCLA875 PO; +Acetaminophen325 M1 PO; +HUMALOG100 UNIT/1 SC; +ORGOVYX120 MG PO
[2024-04-24 00:45] LABS: BASOPHILS ABSOLUTE AUTO 0.05 K/mm3 (0.00-0.23); BASOPHILS PERCENT AUTO 1 % (0-2); EOSINOPHILS ABSOLUTE AUTO 0.69 K/mm3 (0.00-0.68); EOSINOPHILS PERCENT AUTO 11 % (0-6); Hematocrit 44.9 % (37.0-53.0); Hemoglobin 14.7 g/dL (13.5-17.5); IMMATURE GRAN ABSOLUTE AUTO 0.02 K/mm3 (0.00-0.10); IMMATURE GRAN PERCENT AUTO 0 % (0-1); LYMPHOCYTES ABSOLUTE AUTO 1.29 K/mm3 (0.84-5.20); LYMPHOCYTES PERCENT AUTO 20 % (21-46); MONOCYTES ABSOLUTE AUTO 0.49 K/mm3 (0.16-1.47); MONOCYTES PERCENT AUTO 8 % (4-13); Mean Corpuscular HGB 29.5 pg (26.0-34.0); Mean Corpuscular HGB Conc 32.7 g/dL (31.5-36.5); Mean Corpuscular Volume 90 fL (80-100); Mean Platelet Volume 9.7 fL (9.1-12.4); NEUTROPHILS ABSOLUTE AUTO 3.98 K/mm3 (1.96-9.15); NEUTROPHILS PERCENT AUTO 61 % (41-73); Platelet Count 151 K/mm3 (150-400); RDW Standard Deviation 42.5 fL (35.1-46.3); Red Blood Cell Count 4.99 M/mm3 (4.30-5.90); White Blood Cell Count 6.52 K/mm3 (4.00-11.30)
[2024-04-24 01:11] LABS: Albumin, Blood 4.1 g/dL (3.4-5.0); Albumin/Globulin Ratio 1.3 (0.8-1.8); Bilirubin, Total 0.3 mg/dL (0.1-1.0); Calcium, Blood 9.7 mg/dL (8.5-10.1); Globulin, Blood 3.2 g/dL (2.2-4.0); Potassium, Blood 3.8 mmol/L (3.5-5.5); Total Protein, Blood 7.3 g/dL (6.4-8.2)
[2024-04-24 01:46] LABS: Source, Urine Clean Catch
[2024-04-24 02:09] LABS: Bilirubin, Urine Neg (Neg); Blood, Urine Neg (Neg); Glucose Qualitative, Urine 4+ (Neg); Ketones, Urine 1+ (Neg); Leukocyte Esterase, Urine Neg (Neg); Nitrite, Urine Neg (Neg); Protein, Urine Neg (Neg); Specific Gravity, Urine 1.015 (1.003-1.022); Urobilinogen, Urine NORM (Normal)
[2024-04-24 02:15] LABS: Appearance, Urine Clear (Clear); Color, Urine Pale Yellow (P-Yellow)
[2024-04-24] MEDS ORDERED: NS 1,000 ML IV SCH (02:25)
[2024-04-24 05:00] VITALS: BP 139/72
== END 2024-04-24 05:15 | disposition home or self-care (01) ==
LOC: ER 22:46
PROVIDERS: Emergency Medicine
DX: E11.65 Type 2 diabetes mellitus with hyperglycemia (principal); E86.0 Dehydration; K21.9 Gastro-esophageal reflux disease without esophagitis; I10 Essential (primary) hypertension; Z87.891 Personal history of nicotine dependence; Z79.4 Long term (current) use of insulin; Z88.6 Allergy status to analgesic agent; Z88.8 Allergy status to other drugs, medicaments and biological substances
CPT/HCPCS: 71045; 80053; 81003; 84484; 85025; 93005; 93010; 99284-25; J7030

== ENCOUNTER 2024-09-04 16:51 | Inpatient (IN) | payer MEDICARE ==
[~2024-09-04] VITALS: Ht 170.2 cm; Wt 81.7 kg
[~2024-09-04 16:51] MED LIST changes: +ATOR40TA PO; -ATOR80 PO
[2024-09-04 17:37] LABS: BASOPHILS ABSOLUTE AUTO 0.03 K/mm3 (0.00-0.23); BASOPHILS PERCENT AUTO 0 % (0-2); EOSINOPHILS ABSOLUTE AUTO 0.13 K/mm3 (0.00-0.68); EOSINOPHILS PERCENT AUTO 1 % (0-6); Hematocrit 39.2 % (37.0-53.0); Hemoglobin 13.4 g/dL (13.5-17.5); IMMATURE GRAN ABSOLUTE AUTO 0.03 K/mm3 (0.00-0.10); IMMATURE GRAN PERCENT AUTO 0 % (0-1); LYMPHOCYTES ABSOLUTE AUTO 1.09 K/mm3 (0.84-5.20); LYMPHOCYTES PERCENT AUTO 10 % (21-46); MONOCYTES ABSOLUTE AUTO 0.56 K/mm3 (0.16-1.47); MONOCYTES PERCENT AUTO 5 % (4-13); Mean Corpuscular HGB 30.7 pg (26.0-34.0); Mean Corpuscular HGB Conc 34.2 g/dL (31.5-36.5); Mean Corpuscular Volume 90 fL (80-100); Mean Platelet Volume 9.7 fL (9.1-12.4); NEUTROPHILS ABSOLUTE AUTO 9.32 K/mm3 (1.96-9.15); NEUTROPHILS PERCENT AUTO 83 % (41-73); Platelet Count 145 K/mm3 (150-400); RDW Coefficient Variation 12.5 % (11.7-14.2); RDW Standard Deviation 41.3 fL (35.1-46.3); Red Blood Cell Count 4.37 M/mm3 (4.30-5.90); White Blood Cell Count 11.16 K/mm3 (4.00-11.30)
[2024-09-04 18:02] LABS: Albumin, Blood 3.5 g/dL (3.4-5.0); Albumin/Globulin Ratio 1.1 (0.8-1.8); Bilirubin, Total 0.4 mg/dL (0.1-1.0); Bun/Creatinine Ratio 21.1 (12.0-20.0); Calcium, Blood 9.6 mg/dL (8.5-10.1); Creatinine, Blood 1.09 mg/dL (0.60-1.20); Globulin, Blood 3.3 g/dL (2.2-4.0); Total Protein, Blood 6.8 g/dL (6.4-8.2)
[2024-09-04 21:31] LABS: Source, Urine Clean Catch
[2024-09-04 21:40] LABS: Appearance, Urine Cloudy (Clear); Bilirubin, Urine Neg (Neg); Blood, Urine 5+ (Neg); Color, Urine Yellow (P-Yellow); Glucose Qualitative, Urine Neg (Neg); Ketones, Urine Neg (Neg); Leukocyte Esterase, Urine 3+ (Neg); Nitrite, Urine Pos (Neg); Protein, Urine 3+ (Neg); Urobilinogen, Urine NORM (Normal)
[2024-09-04 22:03] LABS: Bacteria Few /hpf; Squamous Epithelial Cells Few /hpf (Few)
[2024-09-04 22:21] LABS: Red Blood Cells, Urine 25-50 /hpf (0-2)
[2024-09-04] MEDS ORDERED: CefTRIAXone Sodium 1,000 MG in NS 100 ML IV ONE (22:35)
[2024-09-05] MEDS ORDERED: NS 1,000 ML IV SCH ×2 (03:00→03:45)
[2024-09-05] MEDS ORDERED: FLU VACC TS2024-25(6MOS UP)/PF 45 MCG/0.5 ML SYRINGE IM ONE (03:45)
[2024-09-05] MEDS ORDERED: Ondansetron HCl 2 MG / ML 2ML Vial IV PRN (03:45)
[2024-09-05] MEDS ORDERED: Acetaminophen 325 MG TABLET PO PRN (03:45)
[2024-09-05 04:56] LABS: Influenza A, PCR NEGATIVE (NEGATIVE); Influenza B, PCR NEGATIVE (NEGATIVE); Resp Syncytial Virus, PCR NEGATIVE (NEGATIVE); SARS-Cov-2 (COVID-19) PCR, MMC NEGATIVE (NEGATIVE)
[2024-09-05 05:12] VITALS: BP 115/59
[2024-09-05 06:15] LABS: BASOPHILS ABSOLUTE AUTO 0.04 K/mm3 (0.00-0.23); BASOPHILS PERCENT AUTO 0 % (0-2); EOSINOPHILS ABSOLUTE AUTO 0.02 K/mm3 (0.00-0.68); EOSINOPHILS PERCENT AUTO 0 % (0-6); Hematocrit 38.6 % (37.0-53.0); IMMATURE GRAN ABSOLUTE AUTO 0.05 K/mm3 (0.00-0.10); IMMATURE GRAN PERCENT AUTO 0 % (0-1); LYMPHOCYTES ABSOLUTE AUTO 0.89 K/mm3 (0.84-5.20); LYMPHOCYTES PERCENT AUTO 7 % (21-46); MONOCYTES ABSOLUTE AUTO 0.63 K/mm3 (0.16-1.47); MONOCYTES PERCENT AUTO 5 % (4-13); Mean Corpuscular HGB 30.3 pg (26.0-34.0); Mean Corpuscular HGB Conc 33.7 g/dL (31.5-36.5); Mean Corpuscular Volume 90 fL (80-100); NEUTROPHILS ABSOLUTE AUTO 11.98 K/mm3 (1.96-9.15); NEUTROPHILS PERCENT AUTO 88 % (41-73); Platelet Count 137 K/mm3 (150-400); RDW Standard Deviation 42.6 fL (35.1-46.3); Red Blood Cell Count 4.29 M/mm3 (4.30-5.90); White Blood Cell Count 13.61 K/mm3 (4.00-11.30)
[2024-09-05 06:31] LABS: Bilirubin, Total 0.5 mg/dL (0.1-1.0); Calcium, Blood 8.9 mg/dL (8.5-10.1); Creatinine, Blood 1.05 mg/dL (0.60-1.20)
--- NOTE | 2024-09-05 06:45 | NUR ---
SHIFT SUMMARY ARRIVED FROM ED AT 0500. ORIENTED TO ROOM. PT A&Ox4, SPEACH SLOW AND MUMBLED. AT BEDSIDE. NO C/O PAIN. PT ON 4L OF OXYGEN D/T DESATING DOWN TO THE 80's IN ED. BASELINE IS RA. HR IS SR @ [address] IN [address] DRAINING PINK URINE. NS INFUSING @ 75ML/HR TIMES ONE BAG. PT IS WC BOUND AT BASELINE. VSS. BED IN LOWEST POSITION AND CALL LIGHT IN REACH.
[2024-09-05 07:35] VITALS: BP 108/57
[2024-09-05] MEDS ORDERED: Insulin Human Lispro 100 Units/ML 3ML Syringe SC SCH ×3 (09:00→17:30)
[2024-09-05] MEDS ORDERED: Enoxaparin 40 MG/0.4 ML SYR SC SCH (09:00)
[2024-09-05] MEDS ORDERED: Misc. Tablet PO SCH (09:00)
[2024-09-05] MEDS ORDERED: Insulin Glargine-Yfgn 100 Unit/mL 3 ML SYR SC SCH ×2 (09:00→21:00)
[2024-09-05 11:50] VITALS: BP 121/61
[2024-09-05 12:47] LABS: Influenza A, PCR NEGATIVE (NEGATIVE); Influenza B, PCR NEGATIVE (NEGATIVE); Resp Syncytial Virus, PCR NEGATIVE (NEGATIVE); SARS-Cov-2 (COVID-19) PCR, MMC NEGATIVE (NEGATIVE)
--- NOTE | 2024-09-05 14:00 | NUR ---
PC INITIAL VISIT: MET WITH PT AND FAMILY IN ROOM. PT DENIES PAIN. THEY HAD QUESTIONS AND NEEDED CLARIFICATION ON WHAT KIND OF TREATMENT PT WOULD GET IF HE WAS A DNR VS FULL CODE. EXPLAINED IN DETAIL WHAT TREATMENT PT WOULD GET AND CLARIFIED IF HE WAS DNR STATUS, WE WOULD NOT PROVIDE CHEST COMPRESSIONS OR INTUBATE. PT "LEELEE" STATED HE DOES NOT WANT CHEST COMPRESSIONS OR TO BE PLACED ON A VENTILATOR IF HE SO NEEDED IT DUE TO ONSET OF ACUTE EVENT. AGREED. FAMILY PRESENT SUPPORT DECISION. THEY ALSO HAD QUESTIONS ABOUT LTC. SPOUSE STATES SHE CAN NO LONGER CARE FOR HER AT HOME HE HAS REQUIRED TOO MUCH CARE AT THIS TIME AND SHE CAN NO LONGER GIVE THE CARE HE REQUIRES. THEY ARE HOPEFUL HE CAN GO TO SNF TO REGAIN SOME STRENGTH BUT THEY WANT TO PURSUE LTC EITHER WAY. ADVISED FAMILY IF THEY WANT LTC THEN THEY SHOULD START PROCESS OF FINDING A LTC OPTION AND THAT IT IS UP TO THEM TO FIND A PLACE FOR PT TO LIVE. ALSO ADVISED THERE IS OPTION TO HIRE CAREGIVERS TO COME IN AND HELP WITH CARE IF LTC IS NOT ATTAINABLE RIGHT AWAY. CALL PLACED TO DR. WRIGHT REQUESTING CODE STATUS CHANGE. LEFT DETAILED VOICE MESSAGE ON HIS CELL PHONE.
[2024-09-05 17:12] VITALS: BP 118/58
--- NOTE | 2024-09-05 18:23 | NUR ---
SHIFT SUMMARY MR ARENAS IS OX4. APPROPRIATE CONVERSATION, LOW VOLUME, MUMBLED SPEACH. HE IS VERY WEAK, REQUIRING 2 STAFF TO TURN AND REPOSITION HIM, LIMITED MOTION TO LEFT ARM AND BOTH LEGS. LONG CATHETER IN PLACE, NOW CLEAR YELLOW URINE TO BEDSIDE BAG. OXYGEN DECREASED TO 2L NC, SATS IN THE 90S. +COUGH ON OCCASION. ON TELEMETRY IN , NO CALLS FROM CONFLICTS ANALYST. BLOOD GLUCOSE ELEVATED. DR JAMIL NOTIFIED AND T.O. READ BACK AND TRANSCRIBED TO CHANGE INSULIN TO HIGH SLIDING SCALE. FAMILY IS CONCERNED ABOUT INCREASED LEVEL OF CARE AT HOME, INTERESTED IN OPTIONS OF HOME CARE OR [facility] CARE. ALESSANDRA [employer] TEAM MEMBER NOTIFIED. FAMILY ASLO REQUESTED PALLIATIVE CARE INFORMATION AND RED PALLIATIVE CARE RN SPENT TIME WITH PT AND FMAILY. PT HAS GOOD APPETITE. BED LOW, CALL LIGHT IN REACH.
[2024-09-05 20:16] VITALS: BP 120/45
[2024-09-05] MEDS ORDERED: CefTRIAXone Sodium 1,000 MG in NS 100 ML IV SCH (21:00)
[2024-09-05] MEDS ORDERED: TraZODone HCl 100 MG Tab PO SCH (21:00)
[2024-09-05] MEDS ORDERED: Oxybutynin Chlo15 MG PO (21:28)
--- NOTE | 2024-09-05 21:40 | NUR ---
SPOKE TO HOSPITALIST CONCERNING CONTINUING HOME MEDICATIONS AT 2136. HOSPITALIST VI W/ CONTINUING OMEPRAZOLE.
[2024-09-06 05:18] VITALS: BP 114/67
[2024-09-06 05:59] LABS: BASOPHILS ABSOLUTE AUTO 0.03 K/mm3 (0.00-0.23); BASOPHILS PERCENT AUTO 0 % (0-2); EOSINOPHILS ABSOLUTE AUTO 0.25 K/mm3 (0.00-0.68); EOSINOPHILS PERCENT AUTO 3 % (0-6); Hematocrit 34.7 % (37.0-53.0); Hemoglobin 11.4 g/dL (13.5-17.5); IMMATURE GRAN ABSOLUTE AUTO 0.04 K/mm3 (0.00-0.10); IMMATURE GRAN PERCENT AUTO 0 % (0-1); LYMPHOCYTES ABSOLUTE AUTO 1.17 K/mm3 (0.84-5.20); LYMPHOCYTES PERCENT AUTO 12 % (21-46); MONOCYTES ABSOLUTE AUTO 0.48 K/mm3 (0.16-1.47); MONOCYTES PERCENT AUTO 5 % (4-13); Mean Corpuscular HGB 30.1 pg (26.0-34.0); Mean Corpuscular HGB Conc 32.9 g/dL (31.5-36.5); Mean Corpuscular Volume 92 fL (80-100); Mean Platelet Volume 9.8 fL (9.1-12.4); NEUTROPHILS ABSOLUTE AUTO 7.76 K/mm3 (1.96-9.15); NEUTROPHILS PERCENT AUTO 80 % (41-73); Platelet Count 136 K/mm3 (150-400); RDW Coefficient Variation 13.1 % (11.7-14.2); RDW Standard Deviation 44.2 fL (35.1-46.3); Red Blood Cell Count 3.79 M/mm3 (4.30-5.90); White Blood Cell Count 9.73 K/mm3 (4.00-11.30)
[2024-09-06] MEDS ORDERED: Omeprazole 20 MG CapCR PO SCH (06:00)
[2024-09-06 06:27] LABS: Bun/Creatinine Ratio 20.5 (12.0-20.0); Calcium, Blood 9.1 mg/dL (8.5-10.1); Creatinine, Blood 0.88 mg/dL (0.60-1.20); Potassium, Blood 3.7 mmol/L (3.5-5.5)
--- NOTE | 2024-09-06 07:08 | NUR ---
SHIFT SUMMARY PT HAS BEEN RESTING COMFORTABLY OVERNIGHT. PT HAS BEEN AOX4, CALM AND COOPERATIVE. HIS HAS BEEN AT BEDSIDE OVERNIGHT. PT HAS BEEN ON 2LNC, AND TOLERATING O2 WELL. HE HAS BEEN ON TELEMETRY. PT HAS BEEN ON BEDREST, W/ WEAKNESS X4. PT HAS LONG, PATENT AND DRAINING TO GRAVITY. NO ACUTE EVENTS OVERNIGHT.
[2024-09-06 07:53] VITALS: BP 116/66
[2024-09-06 11:57] VITALS: BP 123/66
[2024-09-06 15:55] VITALS: BP 126/57
--- NOTE | 2024-09-06 16:53 | NUR ---
SHIFT SUMMARY MR ARENAS IS OX4. HE REMAINS VERY WEAK, ABLE TO USE RIGHT ARM TO FEED HIMSELF AND ABLE TO LIFT RIGHT ARM BUT LEFT ARM AND BOTH LEGS WITH VERY LIMITED MOVEMENT. ABLE TO LIFT HEAD WEAKLY OFF THE PILLOW. MUMBLED SPEECH. 2 PERSON ASSIST TO TURN AND REPOSITION Q2HRS. PLACED ON EGGCRATE MATTRESS. LONG CATHETER REMAINS IN PLACE WITH CLEAR YELLOW URINE. C/O HEADACHE, GIVEN TYLENOL, TAKES MEDS IN SUGAR FREE PUDDING. BLOOD SUGARS HAVE BEEN HIGH TODAY, 274 BEFORE LUNCH. COVERED WITH HIGH SLIDING SCALE INSULIN. HAS BEEN AT THE BEDSIDE ALL SHIFT, VERY SUPPORTIVE FAMILY. BED LOW, CALL LIGHT IN REACH.
--- NOTE | 2024-09-06 16:59 | NUR ---
ADDENDUM ON ROOM AIR SINCE 1PM WITH O2 SATS IN THE 90S.
[2024-09-06 19:32] VITALS: BP 107/64
[2024-09-07 00:51] VITALS: BP 120/60
[2024-09-07 05:10] VITALS: BP 117/62
[2024-09-07 05:24] LABS: BASOPHILS ABSOLUTE AUTO 0.03 K/mm3 (0.00-0.23); BASOPHILS PERCENT AUTO 1 % (0-2); EOSINOPHILS ABSOLUTE AUTO 0.36 K/mm3 (0.00-0.68); EOSINOPHILS PERCENT AUTO 6 % (0-6); Hematocrit 33.9 % (37.0-53.0); Hemoglobin 11.4 g/dL (13.5-17.5); IMMATURE GRAN ABSOLUTE AUTO 0.02 K/mm3 (0.00-0.10); IMMATURE GRAN PERCENT AUTO 0 % (0-1); LYMPHOCYTES ABSOLUTE AUTO 1.16 K/mm3 (0.84-5.20); LYMPHOCYTES PERCENT AUTO 19 % (21-46); MONOCYTES ABSOLUTE AUTO 0.36 K/mm3 (0.16-1.47); MONOCYTES PERCENT AUTO 6 % (4-13); Mean Corpuscular HGB 30.3 pg (26.0-34.0); Mean Corpuscular HGB Conc 33.6 g/dL (31.5-36.5); Mean Corpuscular Volume 90 fL (80-100); Mean Platelet Volume 10.1 fL (9.1-12.4); NEUTROPHILS ABSOLUTE AUTO 4.06 K/mm3 (1.96-9.15); NEUTROPHILS PERCENT AUTO 68 % (41-73); Platelet Count 128 K/mm3 (150-400); RDW Coefficient Variation 12.9 % (11.7-14.2); RDW Standard Deviation 42.5 fL (35.1-46.3); Red Blood Cell Count 3.76 M/mm3 (4.30-5.90); White Blood Cell Count 5.99 K/mm3 (4.00-11.30)
[2024-09-07 06:01] LABS: Bun/Creatinine Ratio 21.6 (12.0-20.0); Calcium, Blood 8.7 mg/dL (8.5-10.1); Creatinine, Blood 0.88 mg/dL (0.60-1.20); Potassium, Blood 3.7 mmol/L (3.5-5.5)
--- NOTE | 2024-09-07 06:18 | NUR ---
SHIFT SUMMARY PT HAS BEEN RESTING IN BED COMFORTABLY OVERNIGHT. PT'S HAS BEEN AT BEDSIDE FOR ENTIRE NIGHT. SHE HAS HELPED PT WITH FEEDING AND REPOSITIONING. PT IS AOX4, SPEECH HAS BEEN SOFT AND MUMBLING. PT HAS WEAKNESS IN BUE, AND PARALYSIS IN BLE. LONG IS IN PLACE, PATENT AND DRAINING BY GRAVITY. PT HAS BEEN ON TELEMETRY. NO COMPLAINTS FROM PT OR . PT HAD UNEVENTFUL EVENING.
[2024-09-07 07:15] VITALS: BP 115/58
[2024-09-07 12:12] VITALS: BP 123/64
[2024-09-07 15:29] VITALS: BP 110/58
--- NOTE | 2024-09-07 17:45 | NUR ---
SHIFT SUMMARY NO ACUTE CHANGES T/O SHIFT, VSS, A/Ox4. DNR. BEDBOUND WITH LIFT ASSIST. PT DENIES PAIN. INDWELLING LONG CATHETER REMAINS PATENT AND DRAINING WITH GRAVITY. PT/OT WORKED WITH PT TODAY. PT DANGLED AT BEDSIDE X2 THIS SHIFT. WILL ATTEMPT TO GET PT LIFTED TO CHAIR FOR DINNER PER PT REQUEST. GOOD APPETITE, FAIR FLUID INTAKE. IV REMAINS SALINE LOCKED. LONG ACTING INSULIN INCREASED TO 30 UNITS AT BEDTIME. PT CURRENTLY RESTING IN HOSPITAL BED, WITH BED IN LOWEST POSITION AND CALL LIGHT WITHIN REACH. SPOUSE AT BEDSIDE.
[2024-09-07] MEDS ORDERED: Insulin Human Lispro 100 Units/ML 3ML Syringe SC SCH (18:00)
[2024-09-07 19:41] VITALS: BP 117/68
[2024-09-07] MEDS ORDERED: Insulin Glargine-Yfgn 100 Unit/mL 3 ML SYR SC SCH (21:00)
[2024-09-08 03:43] VITALS: BP 119/66
--- NOTE | 2024-09-08 04:54 | NUR ---
SHIFT SUMMARY PATIENT IS ALERT AND ORIENTED WITH OCCASIONAL CONFUSION. PATIENT HAS HAD NO ACUTE EVENTS THIS SHIFT. VITAL SIGNS REVIEWED. PATIENT IS BEDBOUND AND HAS BEEN TURNED MUCH TOLERATED. LONG IS PATENT AND DRAINING TO GRAVITY. SPENT THE NIGHT AND HELPED WITH CARE. BED IN LOCKED AND LOWEST POSITION. CALL LIGHT IN PLACE.
[2024-09-08 07:22] VITALS: BP 123/69
[2024-09-08] MEDS ORDERED: Insulin Human Lispro 100 Units/ML 3ML Syringe SC SCH (09:00)
[2024-09-08 11:17] VITALS: BP 115/72
[2024-09-08 15:56] VITALS: BP 122/62
--- NOTE | 2024-09-08 17:36 | NUR ---
SUMMARY- PT A/O X3, VERBAL AND INTERACTS APPROPRIATE WITH STAFF. ABLE TO MAKE NEEDS KNOWN. PT IS BEDREST DEPENDANT WITH ADL'S. UP TO CHAIR FOR BREAKFAST AND LUNCH VIA LIFT. FED SELF ALL MEALS WITH SET UP. ADAQUATE APPETITE. BLOOD SUGARS HIGH 200'S T/O THE DAY, USING CARB COUNTING AND 5U ADDITIONALLY WITH EACH MEAL. LONG IN USE RELATED TO RETENTION, CLEAR YELLOW. TELE SR 74. PLAN FOR SNF [facility], P/U 10 OR 1100- WILL REPORT TO TONY BOWLES
[2024-09-08 19:25] VITALS: BP 110/61
[2024-09-09 00:30] VITALS: BP 136/70
--- NOTE | 2024-09-09 04:01 | NUR ---
SHIFT SUMAMRY A&0X4 ,SPEECH SLURRED AND APPROPRIATE, UP IN CHAIR AT ONSET SHIFT THEN BACK TO BED USING CEILING LIFT WHICH TOLERATED WELL, VSS, CBG AT HS WAS 225, LONG DRAINING CLEAR YELLOW URINE OF SUFFICIENT QUANTITY, RECEIVED LAST DOSE IV ROCEPHIN & TOLERATED WELL, TURNED EVERY 2 HRS, ON TELEMETRY & NSR PER TECH, VOICES NEEDS APPROPRIATELY, AT BEDSIDE IN RECLINER
[2024-09-09 04:14] VITALS: BP 113/70
[2024-09-09 07:13] VITALS: BP 111/76
--- NOTE | 2024-09-09 12:47 | NUR ---
SHIFT SUMMARY AND DISCHARGE TO REHAB PATIENT ALERT AND INTERACTIVE. FAMILY AT BEDSIDE THROUGHOUT SHIFT. PATIENT DRESSED, IV REMOVED, CATHETER CARE PROVIDED BEFORE DISCHARGE. PATIENT TRANSFERED FROM BED TO [facility] FOR TRANSPORT. FAMILY PRESENT AND BELONGINGS SENT WITH FAMILY. ROOM CHECK DONE WITH FAMILY PRIOR TO DEPARTURE.
[2024-09-09] MEDS ORDERED: VISBIOME 112.51 EACH PO (13:40)
[2024-09-09] MEDS ORDERED: RELUGOLIX PO (13:40)
[2024-09-09] MEDS ORDERED: CEPH500 PO (13:41)
== END 2024-09-09 13:45 | DRG 690 ==
LOC: ER 16:51 → MEDS 16:52
PROVIDERS: Emergency Medicine; Internal Medicine; Student in an Organized Health Care Education/Training Program; ADMIT Internal Medicine
PROC: 0T9B70Z Drainage of Bladder with Drainage Device, Via Natural or Artificial Opening (ICD-10-PCS; principal; 2024-09-05)
DX: N13.6 Pyonephrosis (principal); K55.1 Chronic vascular disorders of intestine; K21.9 Gastro-esophageal reflux disease without esophagitis; Z66 Do not resuscitate; I12.9 Hypertensive chronic kidney disease with stage 1 through stage 4 chronic kidney disease, or unspecified chronic kidney disease; N18.30 Chronic kidney disease, stage 3 unspecified; E11.22 Type 2 diabetes mellitus with diabetic chronic kidney disease; R13.10 Dysphagia, unspecified; E78.5 Hyperlipidemia, unspecified; S30.813A Abrasion of scrotum and testes, initial encounter; D69.6 Thrombocytopenia, unspecified; R33.9 Retention of urine, unspecified; I71.40 Abdominal aortic aneurysm, without rupture, unspecified; I70.1 Atherosclerosis of renal artery; G31.9 Degenerative disease of nervous system, unspecified; B96.4 Proteus (mirabilis) (morganii) as the cause of diseases classified elsewhere; Z98.890 Other specified postprocedural states; Z90.49 Acquired absence of other specified parts of digestive tract; Z99.3 Dependence on wheelchair; Z88.6 Allergy status to analgesic agent; Z85.46 Personal history of malignant neoplasm of prostate; Z88.8 Allergy status to other drugs, medicaments and biological substances; Z87.891 Personal history of nicotine dependence; Z90.79 Acquired absence of other genital organ(s)
CPT/HCPCS: 0241U; 36415; 51702; 51798; 71045; 74177; 80048; 80053; 81001; 82947; 83880; 85025; 87077; 87086; 87186; 94760; 96365; 96366; 96372; 97110; 97112; 97162; 97166; 97530; 99285-25; A9270; G0378; J0696; J1650; J1815; J7030; Q9967

== ENCOUNTER 2024-11-04 14:50 | Emergency (ER) | payer MEDICARE ==
[~2024-11-04] VITALS: Ht 167.6 cm; Wt 81.7 kg
[~2024-11-04 14:50] MED LIST changes: +CEPH500 PO; +Oxybutynin Chlo15 MG PO; +RELUGOLIX PO; +VISBIOME 112.51 EACH PO
[2024-11-04 15:49] LABS: BASOPHILS ABSOLUTE AUTO 0.02 K/mm3 (0.00-0.23); BASOPHILS PERCENT AUTO 0 % (0-2); EOSINOPHILS ABSOLUTE AUTO 0.26 K/mm3 (0.00-0.68); EOSINOPHILS PERCENT AUTO 4 % (0-6); Hematocrit 38.2 % (37.0-53.0); Hemoglobin 12.8 g/dL (13.5-17.5); IMMATURE GRAN ABSOLUTE AUTO 0.02 K/mm3 (0.00-0.10); IMMATURE GRAN PERCENT AUTO 0 % (0-1); LYMPHOCYTES ABSOLUTE AUTO 1.14 K/mm3 (0.84-5.20); LYMPHOCYTES PERCENT AUTO 16 % (21-46); MONOCYTES PERCENT AUTO 6 % (4-13); Mean Corpuscular HGB 29.6 pg (26.0-34.0); Mean Corpuscular HGB Conc 33.5 g/dL (31.5-36.5); Mean Corpuscular Volume 88 fL (80-100); Mean Platelet Volume 9.5 fL (9.1-12.4); NEUTROPHILS ABSOLUTE AUTO 5.36 K/mm3 (1.96-9.15); NEUTROPHILS PERCENT AUTO 74 % (41-73); Platelet Count 155 K/mm3 (150-400); RDW Standard Deviation 42.3 fL (35.1-46.3); Red Blood Cell Count 4.32 M/mm3 (4.30-5.90)
[2024-11-04 16:21] LABS: Albumin, Blood 3.3 g/dL (3.4-5.0); Albumin/Globulin Ratio 1.1 (0.8-1.8); Bilirubin, Total 0.6 mg/dL (0.1-1.0); Bun/Creatinine Ratio 16.1 (12.0-20.0); Calcium, Blood 9.3 mg/dL (8.5-10.1); Creatinine, Blood 0.68 mg/dL (0.60-1.20); Globulin, Blood 3.1 g/dL (2.2-4.0); Potassium, Blood 3.9 mmol/L (3.5-5.5); Total Protein, Blood 6.4 g/dL (6.4-8.2)
[2024-11-04 16:57] VITALS: BP 120/70
== END 2024-11-04 16:58 | disposition home or self-care (01) ==
LOC: ER 14:50
PROVIDERS: Emergency Medicine
DX: I10 Essential (primary) hypertension (principal); E11.9 Type 2 diabetes mellitus without complications; K21.9 Gastro-esophageal reflux disease without esophagitis; Z88.8 Allergy status to other drugs, medicaments and biological substances; Z79.4 Long term (current) use of insulin; Z79.899 Other long term (current) drug therapy; Z87.891 Personal history of nicotine dependence
CPT/HCPCS: 80053; 85025; 93005; 93010; 99283-25

== ENCOUNTER 2024-12-02 17:33 | Emergency (ER) | payer MEDICARE ==
[~2024-12-02] VITALS: Ht 170.2 cm; Wt 81.7 kg
[2024-12-02 18:38] LABS: BASOPHILS ABSOLUTE AUTO 0.03 K/mm3 (0.00-0.23); BASOPHILS PERCENT AUTO 0 % (0-2); EOSINOPHILS ABSOLUTE AUTO 0.33 K/mm3 (0.00-0.68); EOSINOPHILS PERCENT AUTO 4 % (0-6); Hematocrit 36.1 % (37.0-53.0); Hemoglobin 11.9 g/dL (13.5-17.5); IMMATURE GRAN ABSOLUTE AUTO 0.03 K/mm3 (0.00-0.10); IMMATURE GRAN PERCENT AUTO 0 % (0-1); LYMPHOCYTES ABSOLUTE AUTO 1.42 K/mm3 (0.84-5.20); LYMPHOCYTES PERCENT AUTO 18 % (21-46); MONOCYTES ABSOLUTE AUTO 0.54 K/mm3 (0.16-1.47); MONOCYTES PERCENT AUTO 7 % (4-13); Mean Corpuscular HGB 29.6 pg (26.0-34.0); Mean Corpuscular Volume 90 fL (80-100); Mean Platelet Volume 9.3 fL (9.1-12.4); NEUTROPHILS ABSOLUTE AUTO 5.46 K/mm3 (1.96-9.15); NEUTROPHILS PERCENT AUTO 70 % (41-73); Platelet Count 185 K/mm3 (150-400); RDW Coefficient Variation 13.3 % (11.7-14.2); Red Blood Cell Count 4.02 M/mm3 (4.30-5.90); White Blood Cell Count 7.81 K/mm3 (4.00-11.30)
[2024-12-02 18:53] LABS: Albumin/Globulin Ratio 0.9 (0.8-1.8); Bilirubin, Total 0.6 mg/dL (0.1-1.0); Bun/Creatinine Ratio 32.5 (12.0-20.0); Creatinine, Blood 0.71 mg/dL (0.60-1.20); Globulin, Blood 3.4 g/dL (2.2-4.0); Potassium, Blood 4.4 mmol/L (3.5-5.5); Total Protein, Blood 6.4 g/dL (6.4-8.2)
[2024-12-02] MEDS ORDERED: Trimethoprim/Sulfamethoxazole DS Tab PO ONE (19:10)
[2024-12-02 20:48] LABS: Source, Urine Foley catheter
[2024-12-02 20:59] LABS: Appearance, Urine Hazy (Clear); Bilirubin, Urine Neg (Neg); Blood, Urine 5+ (Neg); Glucose Qualitative, Urine Neg (Neg); Ketones, Urine Neg (Neg); Leukocyte Esterase, Urine 3+ (Neg); Nitrite, Urine Neg (Neg); Protein, Urine 3+ (Neg); Urobilinogen, Urine NORM (Normal); pH, Urine 6.5 (5.0-8.0)
[2024-12-02 21:07] LABS: Color, Urine Pale Yellow (P-Yellow)
[2024-12-02 21:08] LABS: White Blood Cells, Urine 50-100 /hpf (0-5)
[2024-12-02 21:09] LABS: Bacteria Few /hpf; Mucus Light (0-Heavy); Squamous Epithelial Cells Not Seen /hpf (Few)
[2024-12-02 21:14] LABS: CORONAVIRUS COVID-19 AG Negative (NEGATIVE); INFLUENZA A AG Negative (NEGATIVE); INFLUENZA B AG Negative (NEGATIVE)
[2024-12-02] MEDS ORDERED: LEVFLO500 PO (21:55)
[2024-12-02 22:30] VITALS: BP 121/65
== END 2024-12-02 22:57 | disposition home or self-care (01) ==
LOC: ER 17:33
PROVIDERS: Student in an Organized Health Care Education/Training Program
DX: J18.9 Pneumonia, unspecified organism (principal); N39.0 Urinary tract infection, site not specified; I69.354 Hemiplegia and hemiparesis following cerebral infarction affecting left non-dominant side; I69.391 Dysphagia following cerebral infarction; R13.10 Dysphagia, unspecified; I12.9 Hypertensive chronic kidney disease with stage 1 through stage 4 chronic kidney disease, or unspecified chronic kidney disease; E11.22 Type 2 diabetes mellitus with diabetic chronic kidney disease; N18.30 Chronic kidney disease, stage 3 unspecified; E78.5 Hyperlipidemia, unspecified; K21.9 Gastro-esophageal reflux disease without esophagitis; Z88.6 Allergy status to analgesic agent; Z88.8 Allergy status to other drugs, medicaments and biological substances; Z79.4 Long term (current) use of insulin; Z79.899 Other long term (current) drug therapy; Z87.891 Personal history of nicotine dependence
CPT/HCPCS: 51702; 70450; 71045; 80053; 81001; 84484; 85025; 87077; 87086; 87186; 87428-QW; 93005; 93010; 99285-25; A9270

== ENCOUNTER 2025-03-29 14:52 | Emergency (ER) | payer MEDICARE ==
[~2025-03-29] VITALS: Ht 170.2 cm; Wt 78.0 kg
[~2025-03-29 14:52] MED LIST changes: +LEVFLO500 PO
[2025-03-29] MEDS ORDERED: NS 1,000 ML IV ONE (15:27)
[2025-03-29] MEDS ORDERED: NS 1,000 ML IV SCH (15:30)
[2025-03-29 15:39] LABS: Calcium, Ionized (POC) 1.19 mmol/L (1.10-1.46); Chloride (POC) 101 mmol/L (98-108); Creatinine (POC) 0.8 mg/dL (0.8-1.3); Glucose (ISTAT POC) 75 mg/dL (70-99); Hematocrit (POC) 38.0 % (41.0-53.0); Hemoglobin (POC) 12.9 g/dL (13.5-17.5); Potassium (POC) 3.2 mmol/L (3.5-5.5); Sodium (POC) 141 mmol/L (135-148); Total CO2 (POC) 25 mmol/L (21-32)
[2025-03-29 15:42] LABS: BASOPHILS ABSOLUTE AUTO 0.03 K/mm3 (0.00-0.23); BASOPHILS PERCENT AUTO 0 % (0-2); EOSINOPHILS ABSOLUTE AUTO 0.23 K/mm3 (0.00-0.68); EOSINOPHILS PERCENT AUTO 3 % (0-6); Hematocrit 39.1 % (37.0-53.0); Hemoglobin 13.0 g/dL (13.5-17.5); IMMATURE GRAN ABSOLUTE AUTO 0.03 K/mm3 (0.00-0.10); IMMATURE GRAN PERCENT AUTO 0 % (0-1); LYMPHOCYTES ABSOLUTE AUTO 1.92 K/mm3 (0.84-5.20); LYMPHOCYTES PERCENT AUTO 25 % (21-46); MONOCYTES ABSOLUTE AUTO 0.53 K/mm3 (0.16-1.47); MONOCYTES PERCENT AUTO 7 % (4-13); Mean Corpuscular HGB Conc 33.2 g/dL (31.5-36.5); Mean Corpuscular Volume 88 fL (80-100); NEUTROPHILS ABSOLUTE AUTO 4.95 K/mm3 (1.96-9.15); NEUTROPHILS PERCENT AUTO 64 % (41-73); NRBC ABSOLUTE 0.00 K/mm3 (0.00-0.02); NRBC Auto 0.0 /100 WBC (0.0-0.2); Platelet Count 166 K/mm3 (150-400); RDW Coefficient Variation 14.0 % (11.7-14.2); RDW Standard Deviation 44.3 fL (35.1-46.3)
[2025-03-29 15:56] LABS: Alanine Aminotransfer (ALT/SGP 19.0 U/L (12-78); Albumin, Blood 3.1 g/dL (3.4-5.0); Albumin/Globulin Ratio 0.9 (0.8-1.8); Anion Gap 7.0 mmol/L (3-11); Aspartate Aminotrans (AST/SGOT 17.0 U/L (12-37); Bilirubin, Total 0.5 mg/dL (0.1-1.0); Blood Urea Nitrogen 11.0 mg/dL (8-24); CO2, Blood 30.0 mmol/L (21-32); Calcium, Blood 9.7 mg/dL (8.5-10.1); Chloride, Blood 105.0 mmol/L (98-108); Creatinine, Blood 0.68 mg/dL (0.60-1.20); Globulin, Blood 3.5 g/dL (2.2-4.0); Glucose, Blood 78.0 mg/dL (70-99); Potassium, Blood 3.2 mmol/L (3.5-5.5); Sodium, Blood 139.0 mmol/L (136-145); Total Protein, Blood 6.6 g/dL (6.4-8.2)
[2025-03-29 16:22] LABS: Magnesium, Blood 1.7 mg/dL (1.6-2.4); Phosphorus, Blood 4.0 mg/dL (2.5-4.9)
[2025-03-29] MEDS ORDERED: NS 500 ML IV SCH (16:25)
[2025-03-29] MEDS ORDERED: Mag Sulfate 1 GM/D5% 100ML 100 ML IV ONE (16:30)
[2025-03-29 17:07] LABS: Thyroid Stimulating Hormone 3.22 uIU/mL (0.360-4.800)
[2025-03-29 18:24] LABS: Source, Urine Clean Catch
[2025-03-29] MEDS ORDERED: POTA20LUD PO (18:24)
[2025-03-29] MEDS ORDERED: MAG-OXIDE MAGN200 MG PO (18:24)
[2025-03-29 18:53] LABS: Bilirubin, Urine Neg (Neg); Glucose Qualitative, Urine Neg (Neg); Ketones, Urine Neg (Neg); Leukocyte Esterase, Urine 2+ (Neg); Protein, Urine Neg (Neg); Specific Gravity, Urine 1.010 (1.003-1.022); Urobilinogen, Urine NORM (Normal)
[2025-03-29 19:00] LABS: Color, Urine Pale Yellow (P-Yellow)
[2025-03-29 20:05] LABS: Influenza A, PCR NEGATIVE (NEGATIVE); Influenza B, PCR NEGATIVE (NEGATIVE); Resp Syncytial Virus, PCR NEGATIVE (NEGATIVE); SARS-Cov-2 (COVID-19) PCR, MMC NEGATIVE (NEGATIVE)
[2025-03-29 21:00] VITALS: BP 146/82
== END 2025-03-29 21:38 | disposition home or self-care (01) ==
LOC: ER 14:52
PROVIDERS: Emergency Medicine
DX: R55 Syncope and collapse (principal); E87.6 Hypokalemia; E11.22 Type 2 diabetes mellitus with diabetic chronic kidney disease; N18.30 Chronic kidney disease, stage 3 unspecified; I10 Essential (primary) hypertension; K21.9 Gastro-esophageal reflux disease without esophagitis; E78.5 Hyperlipidemia, unspecified; Z66 Do not resuscitate; Z87.891 Personal history of nicotine dependence; Z86.73 Personal history of transient ischemic attack (TIA), and cerebral infarction without residual deficits; Z79.4 Long term (current) use of insulin; Z79.899 Other long term (current) drug therapy; Z88.6 Allergy status to analgesic agent; Z88.8 Allergy status to other drugs, medicaments and biological substances
CPT/HCPCS: 70450; 71045; 80047; 80053; 81001; 83735; 84100; 84439; 84443; 85014; 85025; 87077; 87086; 87186; 87637; 93005; 93010; 96365; 96366; 96375; 99285-25; J3475; J3480; J7030; J7050

== ENCOUNTER 2025-04-01 10:18 | Emergency (ER) | payer MEDICARE ==
[~2025-04-01] VITALS: Ht 170.2 cm; Wt 78.0 kg
[~2025-04-01 10:18] MED LIST changes: +MAG-OXIDE MAGN200 MG PO; +POTA20LUD PO
[2025-04-01 11:40] LABS: BASOPHILS ABSOLUTE AUTO 0.03 K/mm3 (0.00-0.23); BASOPHILS PERCENT AUTO 1 % (0-2); EOSINOPHILS ABSOLUTE AUTO 0.21 K/mm3 (0.00-0.68); EOSINOPHILS PERCENT AUTO 4 % (0-6); Hematocrit 35.6 % (37.0-53.0); Hemoglobin 11.5 g/dL (13.5-17.5); IMMATURE GRAN ABSOLUTE AUTO 0.01 K/mm3 (0.00-0.10); IMMATURE GRAN PERCENT AUTO 0 % (0-1); LYMPHOCYTES ABSOLUTE AUTO 1.31 K/mm3 (0.84-5.20); LYMPHOCYTES PERCENT AUTO 22 % (21-46); MONOCYTES ABSOLUTE AUTO 0.43 K/mm3 (0.16-1.47); MONOCYTES PERCENT AUTO 7 % (4-13); Mean Corpuscular HGB Conc 32.3 g/dL (31.5-36.5); Mean Corpuscular Volume 90 fL (80-100); NEUTROPHILS ABSOLUTE AUTO 4.07 K/mm3 (1.96-9.15); NEUTROPHILS PERCENT AUTO 67 % (41-73); NRBC ABSOLUTE 0.00 K/mm3 (0.00-0.02); NRBC Auto 0.0 /100 WBC (0.0-0.2); Platelet Count 159 K/mm3 (150-400); RDW Coefficient Variation 14.2 % (11.7-14.2); RDW Standard Deviation 46.4 fL (35.1-46.3)
[2025-04-01 12:05] LABS: Alanine Aminotransfer (ALT/SGP 18.0 U/L (12-78); Albumin, Blood 2.8 g/dL (3.4-5.0); Albumin/Globulin Ratio 0.9 (0.8-1.8); Anion Gap 7.0 mmol/L (3-11); Aspartate Aminotrans (AST/SGOT 13.0 U/L (12-37); Bilirubin, Total 0.5 mg/dL (0.1-1.0); Blood Urea Nitrogen 14.0 mg/dL (8-24); CO2, Blood 29.0 mmol/L (21-32); Calcium, Blood 9.3 mg/dL (8.5-10.1); Chloride, Blood 105.0 mmol/L (98-108); Creatinine, Blood 0.78 mg/dL (0.60-1.20); Globulin, Blood 3.1 g/dL (2.2-4.0); Glucose, Blood 167.0 mg/dL (70-99); Potassium, Blood 4.0 mmol/L (3.5-5.5); Sodium, Blood 137.0 mmol/L (136-145); Total Protein, Blood 5.9 g/dL (6.4-8.2)
[2025-04-01 13:01] VITALS: BP 104/66
[2025-04-01 15:23] LABS: Source, Urine Straight Cath
[2025-04-01 15:28] LABS: Bilirubin, Urine Neg (Neg); Color, Urine Yellow (P-Yellow); Glucose Qualitative, Urine Neg (Neg); Ketones, Urine Neg (Neg); Leukocyte Esterase, Urine 3+ (Neg); Protein, Urine 3+ (Neg); Specific Gravity, Urine 1.020 (1.003-1.022); Urobilinogen, Urine NORM (Normal)
[2025-04-01 15:48] LABS: White Blood Cells, Urine 50-100 /hpf (0-5)
[2025-04-01] MEDS ORDERED: Ertapenem Sodium 1,000 MG in NS 50 ML IV ONE (16:05)
[2025-04-02] MEDS ORDERED: ERTAPENEM1 G1 IV (16:58)
[2025-04-02] MEDS ORDERED: Doxycycline Mo100 M1 PO (16:59)
== END 2025-04-01 16:56 | disposition home or self-care (01) ==
LOC: ER 10:18
PROVIDERS: Emergency Medicine
DX: T83.518A Infection and inflammatory reaction due to other urinary catheter, initial encounter (principal); B96.1 Klebsiella pneumoniae [K. pneumoniae] as the cause of diseases classified elsewhere; N39.0 Urinary tract infection, site not specified; K21.9 Gastro-esophageal reflux disease without esophagitis; I12.9 Hypertensive chronic kidney disease with stage 1 through stage 4 chronic kidney disease, or unspecified chronic kidney disease; N18.30 Chronic kidney disease, stage 3 unspecified; E11.22 Type 2 diabetes mellitus with diabetic chronic kidney disease; E78.5 Hyperlipidemia, unspecified; Z88.8 Allergy status to other drugs, medicaments and biological substances; Z79.4 Long term (current) use of insulin; Z79.899 Other long term (current) drug therapy; Z87.891 Personal history of nicotine dependence
CPT/HCPCS: 51702; 80053; 81001; 85025; 87077; 87086; 87186; 96374-59; 99283-25; J1335

== ENCOUNTER 2025-04-02 14:30 | Day surgery (SDC) | payer MEDICARE ==
[2025-04-02] MEDS ORDERED: Ertapenem Sodium 1,000 MG in NS 50 ML IV SCH (15:30)
[2025-04-02 16:39] VITALS: BP 134/69
[2025-04-02] MEDS ORDERED: ERTAPENEM1 G1 IV (16:58)
[2025-04-02] MEDS ORDERED: Doxycycline Mo100 M1 PO (16:59)
--- NOTE | 2025-04-02 18:18 | NUR ---
PT'S REPORTS SHE WILL BRING IN A COPY OF PT'S DNR POLST AT HOME. [place] CUR[place].
== END 2025-04-02 23:00 | disposition home or self-care (01) ==
LOC: ATC 14:30
DX: N39.0 Urinary tract infection, site not specified (principal); B96.1 Klebsiella pneumoniae [K. pneumoniae] as the cause of diseases classified elsewhere; Z16.12 Extended spectrum beta lactamase (ESBL) resistance; E11.9 Type 2 diabetes mellitus without complications; K21.9 Gastro-esophageal reflux disease without esophagitis; I12.9 Hypertensive chronic kidney disease with stage 1 through stage 4 chronic kidney disease, or unspecified chronic kidney disease; N18.30 Chronic kidney disease, stage 3 unspecified; E78.5 Hyperlipidemia, unspecified; Z87.891 Personal history of nicotine dependence
CPT/HCPCS: 96365; J1335

== ENCOUNTER 2025-04-03 00:35 | Day surgery (SDC) | payer MEDICARE ==
[~2025-04-03 00:35] MED LIST changes: +Doxycycline Mo100 M1 PO; +ERTAPENEM1 G1 IV
[2025-04-03] MEDS ORDERED: Ertapenem Sodium 1,000 MG in NS 50 ML IV SCH (01:00)
[2025-04-03 14:22] VITALS: BP 174/92
== END 2025-04-03 14:36 | disposition home or self-care (01) ==
LOC: ATC 00:35
DX: N39.0 Urinary tract infection, site not specified (principal); B96.1 Klebsiella pneumoniae [K. pneumoniae] as the cause of diseases classified elsewhere; I12.9 Hypertensive chronic kidney disease with stage 1 through stage 4 chronic kidney disease, or unspecified chronic kidney disease; E11.22 Type 2 diabetes mellitus with diabetic chronic kidney disease; N18.30 Chronic kidney disease, stage 3 unspecified; K21.9 Gastro-esophageal reflux disease without esophagitis; I69.354 Hemiplegia and hemiparesis following cerebral infarction affecting left non-dominant side; I69.391 Dysphagia following cerebral infarction; R13.10 Dysphagia, unspecified; Z16.12 Extended spectrum beta lactamase (ESBL) resistance; Z85.46 Personal history of malignant neoplasm of prostate; Z87.891 Personal history of nicotine dependence; Z79.2 Long term (current) use of antibiotics; Z79.4 Long term (current) use of insulin; Z79.899 Other long term (current) drug therapy; Z88.8 Allergy status to other drugs, medicaments and biological substances
CPT/HCPCS: 96365; J1335

== ENCOUNTER 2025-04-04 00:11 | Day surgery (SDC) | payer MEDICARE ==
[2025-04-04] MEDS ORDERED: Ertapenem Sodium 1,000 MG in NS 50 ML IV SCH (01:00)
[2025-04-04 14:20] VITALS: BP 129/63
== END 2025-04-04 14:40 | disposition home or self-care (01) ==
LOC: ATC 00:11
DX: N39.0 Urinary tract infection, site not specified (principal); B96.1 Klebsiella pneumoniae [K. pneumoniae] as the cause of diseases classified elsewhere; I12.9 Hypertensive chronic kidney disease with stage 1 through stage 4 chronic kidney disease, or unspecified chronic kidney disease; E11.22 Type 2 diabetes mellitus with diabetic chronic kidney disease; N18.30 Chronic kidney disease, stage 3 unspecified; K21.9 Gastro-esophageal reflux disease without esophagitis; E78.5 Hyperlipidemia, unspecified; I69.354 Hemiplegia and hemiparesis following cerebral infarction affecting left non-dominant side; I69.391 Dysphagia following cerebral infarction; R13.10 Dysphagia, unspecified; Z16.12 Extended spectrum beta lactamase (ESBL) resistance; Z85.46 Personal history of malignant neoplasm of prostate; Z87.891 Personal history of nicotine dependence; Z79.2 Long term (current) use of antibiotics; Z79.4 Long term (current) use of insulin; Z79.899 Other long term (current) drug therapy; Z88.8 Allergy status to other drugs, medicaments and biological substances
CPT/HCPCS: 96365; J1335

== ENCOUNTER 2025-04-04 14:50 | Emergency (ER) | payer MEDICARE ==
[~2025-04-04] VITALS: Ht 170.2 cm; Wt 77.6 kg
[2025-04-04 15:06] VITALS: BP 109/66
== END 2025-04-04 15:58 | disposition home or self-care (01) ==
LOC: ER 14:50
DX: T83.031A Leakage of indwelling urethral catheter, initial encounter (principal); I10 Essential (primary) hypertension; E11.9 Type 2 diabetes mellitus without complications; Z86.73 Personal history of transient ischemic attack (TIA), and cerebral infarction without residual deficits; Z87.891 Personal history of nicotine dependence; Z79.2 Long term (current) use of antibiotics
CPT/HCPCS: 51702

== ENCOUNTER 2025-04-06 01:17 | Day surgery (SDC) | payer MEDICARE ==
[~2025-04-06 01:17] MED LIST changes: +Ertapenem Sodium 1,000 MG in NS 50 ML IV SCH
[2025-04-06 14:47] VITALS: BP 97/67
== END 2025-04-06 15:07 | disposition home or self-care (01) ==
LOC: ATC 01:17
DX: N39.0 Urinary tract infection, site not specified (principal); Z16.12 Extended spectrum beta lactamase (ESBL) resistance; I12.9 Hypertensive chronic kidney disease with stage 1 through stage 4 chronic kidney disease, or unspecified chronic kidney disease; E11.22 Type 2 diabetes mellitus with diabetic chronic kidney disease; N18.30 Chronic kidney disease, stage 3 unspecified; K21.9 Gastro-esophageal reflux disease without esophagitis; E78.5 Hyperlipidemia, unspecified; I70.1 Atherosclerosis of renal artery; I69.954 Hemiplegia and hemiparesis following unspecified cerebrovascular disease affecting left non-dominant side; I69.991 Dysphagia following unspecified cerebrovascular disease; R13.10 Dysphagia, unspecified; Z87.891 Personal history of nicotine dependence; Z88.8 Allergy status to other drugs, medicaments and biological substances; Z88.6 Allergy status to analgesic agent; Z79.899 Other long term (current) drug therapy; Z90.49 Acquired absence of other specified parts of digestive tract
CPT/HCPCS: J1335

== ENCOUNTER 2025-04-07 01:29 | Day surgery (SDC) | payer MEDICARE ==
[2025-04-07 14:30] VITALS: BP 112/80
== END 2025-04-07 14:53 | disposition home or self-care (01) ==
LOC: ATC 01:29
DX: N39.0 Urinary tract infection, site not specified (principal); Z16.12 Extended spectrum beta lactamase (ESBL) resistance; K21.9 Gastro-esophageal reflux disease without esophagitis; I12.9 Hypertensive chronic kidney disease with stage 1 through stage 4 chronic kidney disease, or unspecified chronic kidney disease; E11.22 Type 2 diabetes mellitus with diabetic chronic kidney disease; N18.30 Chronic kidney disease, stage 3 unspecified
CPT/HCPCS: 96365; J1335

== ENCOUNTER 2025-04-24 19:36 | Emergency (ER) | payer MEDICARE ==
[~2025-04-24] VITALS: Ht 167.6 cm; Wt 78.5 kg
[~2025-04-24 19:36] MED LIST changes: -Ertapenem Sodium 1,000 MG in NS 50 ML IV SCH
[2025-04-24 20:17] LABS: BASOPHILS ABSOLUTE AUTO 0.03 K/mm3 (0.00-0.23); BASOPHILS PERCENT AUTO 0 % (0-2); EOSINOPHILS ABSOLUTE AUTO 0.30 K/mm3 (0.00-0.68); EOSINOPHILS PERCENT AUTO 4 % (0-6); Hematocrit 34.0 % (37.0-53.0); Hemoglobin 11.3 g/dL (13.5-17.5); IMMATURE GRAN ABSOLUTE AUTO 0.03 K/mm3 (0.00-0.10); IMMATURE GRAN PERCENT AUTO 0 % (0-1); LYMPHOCYTES ABSOLUTE AUTO 1.26 K/mm3 (0.84-5.20); LYMPHOCYTES PERCENT AUTO 16 % (21-46); MONOCYTES ABSOLUTE AUTO 0.54 K/mm3 (0.16-1.47); MONOCYTES PERCENT AUTO 7 % (4-13); Mean Corpuscular HGB Conc 33.2 g/dL (31.5-36.5); Mean Corpuscular Volume 90 fL (80-100); NEUTROPHILS ABSOLUTE AUTO 5.69 K/mm3 (1.96-9.15); NEUTROPHILS PERCENT AUTO 72 % (41-73); NRBC ABSOLUTE 0.00 K/mm3 (0.00-0.02); NRBC Auto 0.0 /100 WBC (0.0-0.2); Platelet Count 201 K/mm3 (150-400); RDW Coefficient Variation 14.2 % (11.7-14.2); RDW Standard Deviation 46.1 fL (35.1-46.3)
[2025-04-24 20:29] LABS: Alanine Aminotransfer (ALT/SGP 21.0 U/L (12-78); Albumin, Blood 2.9 g/dL (3.4-5.0); Albumin/Globulin Ratio 0.8 (0.8-1.8); Anion Gap 7.0 mmol/L (3-11); Aspartate Aminotrans (AST/SGOT 19.0 U/L (12-37); Bilirubin, Total 0.5 mg/dL (0.1-1.0); Blood Urea Nitrogen 19.0 mg/dL (8-24); CO2, Blood 28.0 mmol/L (21-32); Calcium, Blood 9.3 mg/dL (8.5-10.1); Chloride, Blood 105.0 mmol/L (98-108); Creatinine, Blood 0.73 mg/dL (0.60-1.20); Globulin, Blood 3.5 g/dL (2.2-4.0); Glucose, Blood 175.0 mg/dL (70-99); Potassium, Blood 4.3 mmol/L (3.5-5.5); Sodium, Blood 136.0 mmol/L (136-145); Total Protein, Blood 6.4 g/dL (6.4-8.2)
[2025-04-24 22:35] LABS: Source, Urine Foley catheter
[2025-04-24 22:39] LABS: Bilirubin, Urine Neg (Neg); Glucose Qualitative, Urine Neg (Neg); Ketones, Urine Neg (Neg); Leukocyte Esterase, Urine 3+ (Neg); Protein, Urine 2+ (Neg); Specific Gravity, Urine 1.010 (1.003-1.022); Urobilinogen, Urine NORM (Normal)
[2025-04-24 22:55] LABS: Color, Urine Yellow (P-Yellow)
[2025-04-24 22:56] LABS: Red Blood Cells, Urine 0-2 /hpf (0-2)
[2025-04-24 23:00] VITALS: BP 121/70
[2025-04-24] MEDS ORDERED: SULTRIDS PO (23:40)
[2025-04-24] MEDS ORDERED: Trimethoprim/Sulfamethoxazole DS Tab PO ONE (23:40)
== END 2025-04-25 00:57 | disposition home or self-care (01) ==
LOC: ER 19:36
PROVIDERS: Student in an Organized Health Care Education/Training Program
DX: N39.0 Urinary tract infection, site not specified (principal); I12.9 Hypertensive chronic kidney disease with stage 1 through stage 4 chronic kidney disease, or unspecified chronic kidney disease; E11.22 Type 2 diabetes mellitus with diabetic chronic kidney disease; N18.30 Chronic kidney disease, stage 3 unspecified; I69.354 Hemiplegia and hemiparesis following cerebral infarction affecting left non-dominant side; E78.5 Hyperlipidemia, unspecified; K21.9 Gastro-esophageal reflux disease without esophagitis; Z96.0 Presence of urogenital implants; Z87.891 Personal history of nicotine dependence; Z88.6 Allergy status to analgesic agent; Z88.8 Allergy status to other drugs, medicaments and biological substances; Z79.4 Long term (current) use of insulin; Z79.899 Other long term (current) drug therapy
CPT/HCPCS: 51702; 70450; 71046; 80053; 81001; 85025; 87077; 87086; 87186; 93005; 93010; 99285-25; A9270

== ENCOUNTER → 2025-05-25 | Outpatient (CLI) | payer MEDICARE ==
[~2025-05-25] MED LIST changes: +SULTRIDS PO
[2025-05-25 10:44] LABS: Creatinine, Urine Random 56.0 mg/dL (27.00-270.00)
[2025-05-25 10:46] LABS: Microalb/Creat Ratio UR, Rand 925.0 mg/g (0.000-30.000); Microalbumin, Random Urine 518.0 mg/L (0.000-20.000)
== END | disposition home or self-care (01) ==
LOC: LAB SHORT 08:24 → LAB 08:24
PROVIDERS: Internal Medicine Endocrinology, Diabetes & Metabolism
DX: E11.65 Type 2 diabetes mellitus with hyperglycemia (principal)
CPT/HCPCS: 82043; 82570